=== PATIENT | male | born 1955 | race Two or more races ===

== ENCOUNTER 2017-09-10 12:21 | Inpatient (IN) | payer MEDICAID ==
[~2017-09-10] VITALS: Ht 165.1 cm; Wt 35.8 kg
[2017-09-10 12:29] VITALS: BP 122/78
[2017-09-10] MEDS ORDERED: Pantoprazole Inj IVP ONE (12:45)
[2017-09-10] MEDS ORDERED: NORCO 5-325 TA1 EACH ORAL (13:50)
[2017-09-10] MEDS ORDERED: HUMULIN R100 UNIT/1 SUBQ (13:50)
[2017-09-10] MEDS ORDERED: NEURONTIN600 MG ORAL (13:50)
[2017-09-10] MEDS ORDERED: PRO-STAT LIQUID30 ML ORAL (13:52)
[2017-09-10] MEDS ORDERED: ZOFRAN4 M3 ORAL (13:52)
[2017-09-10] MEDS ORDERED: ACETAMINOPHEN325 M1 ORAL (13:52)
--- NOTE | 2017-09-10 14:11 | Emergency Room Report ---
History of Present Illness General Chief Complaint: Gastrointestinal Bleed Source: Patient, Medical Record, EMS Present Illness HPI 62YOM BIBEMS with alleged coffee ground emesis vomiting at SNF Was given IVF, zofran en route Patient c.o pain since last night Patient is poor historian, not clear if he has had this before Per SNF pancreatic cancer, type 2 DM, GERD, jaundice, Allergies: Coded Allergies: No Known Allergies (Unverified , 09/10/17) Patient History Past Medical History: other - see HPI Past Surgical History: none Pertinent Family History: none Social History: Denies: smoking, alcohol use, drug use Immunizations: UTD Reviewed Nursing Documentation: PMH: Agreed, PSxH: Agreed Nursing Documentation-PMH Past Medical History: No History, Except For Hx Diabetes: Yes Hx Cancer: Yes - pancreas Hx Gastrointestinal Problems: Yes - GERD Review of Systems All Other Systems: negative except mentioned in HPI Physical Exam Vital Signs Date Time Temp Pulse Resp B/P (MAP) Pulse Ox O2 Delivery O2 Flow Rate FiO2 09/10/17 12:15 96.4 94 18 114/76 100 Room Air 96.4 Sp02 EP Interpretation: reviewed, normal General Appearance: normal inspection, well appearing, no apparent distress, alert, GCS 15, non-toxic, cachetic, thin Head: normocephalic, atraumatic Eyes: bilateral eye PERRL, bilateral eye EOMI ENT: normal ENT inspection, hearing grossly normal, normal pharynx, no angioedema, normal voice, TMs + canals normal, uvula midline, moist mucus membranes Neck: normal inspection, full range of motion, supple, thyroid normal, no meningismus, no bony tend Respiratory: normal inspection, lungs clear, normal breath sounds, no rhonchi, no respiratory distress, no retraction, no accessory muscle use, no wheezing, speaking full sentences Cardiovascular #1: regular rate, rhythm, no edema, no JVD, normal capillary refill Gastrointestinal: normal inspection, normal bowel sounds, non tender, soft, no mass, no peritonitis, non-distended, no guarding, no hernia, no pulsatile mass Genitourinary: no CVA tenderness Musculoskeletal: normal inspection, back normal, normal range of motion, no calf tenderness, pelvis stable, Migdalia's Sign negative Neurologic: normal inspection, alert, oriented x3, responsive, roof fixer III-XII nml as tested, motor strength/tone normal, cerebellar normal, normal gait, speech normal Psychiatric: normal inspection, judgement/insight normal, mood/affect normal, no suicidal/homicidal ideation, no delusions Skin: normal inspection, normal color, no rash, pallor Lymphatic: normal inspection, no adenopathy Medical Decision Making Diagnostic Impression: Primary Impression: Coffee ground emesis Additional Impression: Anemia Qualified Codes: D64.9 - Anemia, unspecified ER Course VS with tachycardia Pale, cachextic History of GERD Labs: Critically low Hb Given protonix, zofran here Got 2U PRBCs in ED No additional coffee ground emesis or hematesis in ED Endorsed to Dr Kinsey for Dr Ayala, 232pm EKG Diagnostic Results Rate: normal, tachycardiac Rhythm: NSR ST Segments: no acute changes ASA given to the pt in ED: No Rhythm Strip Diag. Results EP Interpretation: yes Rate: 108 Rhythm: NSR, no PVC's, no ectopy Last Vital Signs Date Time Temp Pulse Resp B/P (MAP) Pulse Ox O2 Delivery O2 Flow Rate FiO2 09/10/17 12:29 91 16 122/78 100 Room Air 09/10/17 12:15 96.4 96.4 Status: improved Disposition: ADMITTED INPATIENT Condition: Critical Referrals: ISABELLA AYALA (PCP) SAWYER GARCIA M.D. Sep 10, 2017 14:11
[2017-09-10] MEDS ORDERED: LR 1000ml 1,000 ML IV STA (14:14)
[2017-09-10 14:17] LABS: HEMATOCRIT 20.7 % (42.0-52.0); MEAN CORPUSCULAR VOLUME 98 FL (80-99); PLATELET COUNT 269 K/UL (150-450); RED BLOOD COUNT 2.11 M/UL (4.70-6.10); WHITE BLOOD COUNT 9.2 K/UL (4.8-10.8)
[2017-09-10 14:18] LABS: HEMOGLOBIN 6.6 G/DL (14.2-18.0); INR 1.2 (0.9-1.1)
[2017-09-10 14:30] VITALS: BP 110/78
[2017-09-10 14:44] LABS: ANION GAP 11 mmol/L (5-15); BLOOD UREA NITROGEN 35 mg/dL (7-18); CALCIUM 7.4 MG/DL (8.5-10.1); CARBON DIOXIDE 24 MMOL/L (21-32); CHLORIDE 103 MMOL/L (98-107); CREATININE 0.9 MG/DL (0.55-1.30); SODIUM 138 MMOL/L (136-145)
[2017-09-10 14:49] LABS: ALANINE AMINOTRANSFERASE 16 U/L (12-78); ALBUMIN/GLOBULIN RATIO 0.6 (1.0-2.7); ALKALINE PHOSPHATASE 69 U/L (46-116); ASPARTATE AMINO TRANSFERASE 15 U/L (15-37); BILIRUBIN,TOTAL 0.4 MG/DL (0.2-1.0)
[2017-09-10 16:30] VITALS: BP 101/66
[2017-09-10 19:50] VITALS: BP 123/84
[2017-09-10 20:05] VITALS: BP 120/83
[2017-09-10 21:57] VITALS: BP 126/73
[2017-09-10] MEDS ORDERED: D5NS 1,000 ML IV SCH (22:45)
[2017-09-10] MEDS ORDERED: Morphine Sulfate 2mg/ml Inj IVP PRN (22:45)
[2017-09-11] VITALS (10 sets, daily range): BP systolic 99–128; BP diastolic 64–76
[2017-09-11 00:04] LABS: HEMATOCRIT 28.6 % (42.0-52.0); MEAN CORPUSCULAR VOLUME 87 FL (80-99); PLATELET COUNT 204 K/UL (150-450); RED BLOOD COUNT 3.27 M/UL (4.70-6.10); RED CELL DISTRIBUTION WIDTH 19.2 % (11.6-14.8); WHITE BLOOD COUNT 10.1 K/UL (4.8-10.8)
[2017-09-11] MEDS: HYDROcodone/Acetamin 10/325 tab ORAL PRN ×3 (02:01→19:16)
[2017-09-11] MEDS: NovoLOG Insulin Flexpen SUBQ SCH ×4 (06:11→21:10)
[2017-09-11] MEDS ORDERED: Pantoprazole Inj IV SCH (09:00)
[2017-09-11 09:36] LABS: HEMATOCRIT 26.1 % (42.0-52.0); HEMOGLOBIN 8.7 G/DL (14.2-18.0); MEAN CORPUSCULAR VOLUME 88 FL (80-99); PLATELET COUNT 186 K/UL (150-450); RED BLOOD COUNT 2.96 M/UL (4.70-6.10); RED CELL DISTRIBUTION WIDTH 19.6 % (11.6-14.8); WHITE BLOOD COUNT 13.4 K/UL (4.8-10.8)
--- NOTE | 2017-09-11 09:39 | GI Initial Consult Note ---
History of Present Illness General Date patient seen: Sep 11, 2017 Time patient seen: 09:30 Reason for Hospitalization: Gastrointestinal Bleed Referring physician: FREEMAN LIVINGSTON Reason for Consultation: GI BLEED Present Illness HPI 62YOM BIBEMS with alleged coffee ground emesis vomiting at SNF Was given IVF, zofran en route Patient c.o pain since last night Patient is poor historian, not clear if he has had this before Per SNF pancreatic cancer, type 2 DM, GERD, jaundice GI consulted for GI bleed. Pt seen on floor, awake A&O NAD with no active s/sx of N/V/D. ROS limited, patient is a poor historian. Denies any pain at this time. Stated he did have episodes of vomiting and noted coffee grounds. Unsure if he ever had any endoscopic procedures done before. POLST reviewed, patient has decision maker. Patient presents today with anemia of acute blood loss requiring blood transfusion. Unknown history of endoscopy / colonoscopies. Home Meds Reported Medications Ondansetron* (ZOFRAN*) 4 Mg Tablet, 4 MG ORAL Q4HR Y for Nausea & Vomiting, TAB 09/10/17 Acetaminophen* (ACETAMINOPHEN 325MG TABLET*) 325 Mg Tablet, 650 MG ORAL Q4H Y for For Pain, TAB 09/10/17 Amino Acids/Protein Hydrolys (PRO-STAT LIQUID) 30 Ml Liquid.pkt, 30 ML ORAL DAILY, ML 09/10/17 Hydrocodone Bit/Acetaminophen 5-325* (NORCO 5-325*) 1 Each Tablet, 2 TAB ORAL Q4H Y for For Pain, TAB 0 Refills 09/10/17 Hydrocodone Bit/Acetaminophen 5-325* (NORCO 5-325*) 1 Each Tablet, 1 TAB ORAL Q4H Y for For Pain, TAB 0 Refills 09/10/17 Gabapentin* (NEURONTIN*) 600 Mg Tablet, 600 MG ORAL EVERY 12 HOURS, TAB 09/10/17 Insulin Regular, Human (HUMULIN R) 100 Unit/1 Ml Vial, 0 SUBQ, VIAL 09/10/17 Med list reviewed/reconciled: Yes Allergies: Coded Allergies: No Known Allergies (Unverified , 09/10/17) Patient History Limited by: medical condition History Provided By: Medical Record [facility] Narrative Past Medical History: other - see HPI Past Surgical History: none Pertinent Family History: none Social History: Denies: smoking, alcohol use, drug use Immunizations: UTD Reviewed Nursing Documentation: PMH: Agreed, PSxH: Agreed Nursing Documentation-PMH Past Medical History: No History, Except For Hx Diabetes: Yes Hx Cancer: Yes - pancreas Hx Gastrointestinal Problems: Yes - GERD Review of Systems All Other Systems: limited Physical Exam Vital Signs Date Time Temp Pulse Resp B/P (MAP) Pulse Ox O2 Delivery O2 Flow Rate FiO2 09/10/17 12:15 96.4 94 18 114/76 100 Room Air 96.4 Sp02 EP Interpretation: reviewed, normal Labs Laboratory Tests Test 09/10/17 14:00 09/10/17 23:35 09/11/17 09:10 White Blood Count 9.2 K/UL (4.8-10.8) 10.1 K/UL (4.8-10.8) Pending Red Blood Count 2.11 M/UL (4.70-6.10) L 3.27 M/UL (4.70-6.10) L Pending Hemoglobin 6.6 G/DL (14.2-18.0) *L 10.0 G/DL (14.2-18.0) #L Pending Hematocrit 20.7 % (42.0-52.0) L 28.6 % (42.0-52.0) #L Pending Mean Corpuscular Volume 98 FL (80-99) 87 FL (80-99) # Pending Mean Corpuscular Hemoglobin 31.1 PG (27.0-31.0) H 30.4 PG (27.0-31.0) Pending Mean Corpuscular Hemoglobin Concent 31.8 G/DL (32.0-36.0) L 34.8 G/DL (32.0-36.0) Pending Red Cell Distribution Width 17.0 % (11.6-14.8) H 19.2 % (11.6-14.8) H Pending Platelet Count 269 K/UL (150-450) 204 K/UL (150-450) Pending Mean Platelet Volume 5.4 FL (6.5-10.1) L 5.2 FL (6.5-10.1) L Pending Neutrophils (%) (Auto) % (45.0-75.0) % (45.0-75.0) Pending Lymphocytes (%) (Auto) % (20.0-45.0) % (20.0-45.0) Pending Monocytes (%) (Auto) % (1.0-10.0) % (1.0-10.0) Pending Eosinophils (%) (Auto) % (0.0-3.0) % (0.0-3.0) Pending Basophils (%) (Auto) % (0.0-2.0) % (0.0-2.0) Pending Differential Total Cells Counted 100 Neutrophils % (Manual) 87 % (45-75) H Lymphocytes % (Manual) 8 % (20-45) L Monocytes % (Manual) 5 % (1-10) Eosinophils % (Manual) 0 % (0-3) Basophils % (Manual) 0 % (0-2) Band Neutrophils 0 % (0-8) Platelet Estimate Adequate Platelet Morphology Normal Hypochromasia 2+ Anisocytosis 1+ Prothrombin Time 12.6 SEC (9.30-11.50) H Prothromb Time International Ratio 1.2 (0.9-1.1) H Sodium Level 138 MMOL/L (136-145) Pending Potassium Level 4.0 MMOL/L (3.5-5.1) Pending Chloride Level 103 MMOL/L (98-107) Pending Carbon Dioxide Level 24 MMOL/L (21-32) Pending Anion Gap 11 mmol/L (5-15) Blood Urea Nitrogen 35 mg/dL (7-18) H Pending Creatinine 0.9 MG/DL (0.55-1.30) Pending Estimat Glomerular Filtration Rate > 60 mL/min (>60) Pending Glucose Level 201 MG/DL (74-106) H Pending Calcium Level 7.4 MG/DL (8.5-10.1) L Pending Total Bilirubin 0.4 MG/DL (0.2-1.0) Aspartate Amino Transf (AST/SGOT) 15 U/L (15-37) Alanine Aminotransferase (ALT/SGPT) 16 U/L (12-78) Alkaline Phosphatase 69 U/L (46-116) Total Protein 5.6 G/DL (6.4-8.2) L Albumin 2.0 G/DL (3.4-5.0) L Globulin 3.6 g/dL Albumin/Globulin Ratio 0.6 (1.0-2.7) L Lipase 33 U/L (73-393) L General Appearance: no apparent distress, alert, thin Head: normocephalic EENT: PERRL/EOMI, normal ENT inspection Neck: supple Respiratory: normal breath sounds, no respiratory distress Cardiovascular: normal rate Gastrointestinal: normal inspection, non tender, soft, normal bowel sounds, non -distended Rectal: deferred Genitourinary: deferred Musculoskeletal: normal inspection, back normal Neurologic: alert, responsive Skin: normal inspection, normal color, no rash, warm/dry, palpation normal, well hydrated Lymphatic: normal inspection, no adenopathy Current Medications Current Medications Medications (Trade) Dose Ordered Sig/Nishant Route PRN Reason Start Time Stop Time Status Last Admin Dose Admin Acetaminophen (Tylenol) 650 mg Q4H PRN ORAL Mild Pain (Pain Scale 1-3) 09/10/17 22:45 10/10/17 22:44 Acetaminophen/ Hydrocodone Bitart ([place] 10/325) 1 tab Q4H PRN ORAL For Pain 09/10/17 22:45 09/17/17 22:44 09/11/17 02:01 Dextrose (Dextrose 50%) STAT PRN IV Hypoglycemia 09/10/17 22:45 10/10/17 22:44 Dextrose/ Electrolytes 1,000 ml @ 75 mls/hr [id number] IV 09/10/17 23:39 10/10/17 23:38 09/10/17 23:45 Gabapentin (Neurontin) 600 mg EVERY 12 HOURS ORAL 09/11/17 09:00 10/11/17 08:59 09/11/17 08:50 Heparin Sodium/ Sodium Chloride (Heparin 2000 units/Ns 1000ml premix) 2,000 unit ONCE ONCE INJ 09/11/17 08:30 09/11/17 08:31 UNV Insulin Aspart (NovoLOG) BEFORE MEALS AND HS SUBQ 09/11/17 06:30 10/11/17 06:29 09/11/17 06:11 Lidocaine HCl (Xylocaine 1% 30ml) 30 ml ONCE ONCE INJ 09/11/17 08:30 09/11/17 08:31 UNV Morphine Sulfate (Morphine Sulfate) 2 mg Q4HR PRN IVP Severe Breakthru Pain (>7) 09/10/17 22:45 09/17/17 22:44 Ondansetron HCl (Zofran) 4 mg Q6H PRN IVP Nausea & Vomiting 09/10/17 22:45 10/10/17 22:44 Pantoprazole (Protonix) 40 mg DAILY IV 09/11/17 09:00 10/11/17 08:59 09/11/17 08:50 GI: Plan Problems: (1) Coffee ground emesis (2) Anemia (3) Anemia due to blood loss, acute Plan EGD to be scheduled today pending consent. - maintain NPO + IVFs - PPI BID - prn transfusions additional orders to follow procedure Discussed with Dr. Caicedo. Thank you for this patient referral, we will follow. Clemencia Topete N.P. Sep 11, 2017 09:38
[2017-09-11 09:44] LABS: ANION GAP 5 mmol/L (5-15); BLOOD UREA NITROGEN 32 mg/dL (7-18); CALCIUM 7.5 MG/DL (8.5-10.1); CARBON DIOXIDE 25 MMOL/L (21-32); CHLORIDE 110 MMOL/L (98-107); CREATININE 0.8 MG/DL (0.55-1.30); SODIUM 140 MMOL/L (136-145)
[2017-09-11] MEDS ORDERED: Lidocaine 1% MPF 10mg/ml 5ml INJ ONE (10:00)
[2017-09-11] MEDS ORDERED: Heparin 2000 units/Ns 1000ml INJ ONE (10:00)
[2017-09-11] MEDS ORDERED: Morphine Sulfate 4mg/ml Inj IVP PRN (11:00)
--- NOTE | 2017-09-11 12:49 | Pre-Procedure Note/Attestation ---
Pre-Procedure Note/Attestation Complete Prior to Procedure Planned Procedure: not applicable Procedure Narrative: egd Indications for Procedure Pre-Operative Diagnosis: gib Attestation I attest that I discussed the nature of the procedure; its benefits; risks and complications; and alternatives (and the risks and benefits of such alternatives ), prior to the procedure, with the patient (or the patient's legal farm loan representative). I attest that, if there was a reasonable possibility of needing a blood transfusion, the patient (or the patient's legal farm loan representative) was given the [facility] standardized written summary, pursuant to the Simon Rosi Blood Safety Act ([place] Health and Safety Code # 1645, as amended). I attest that I re-evaluated the patient just prior to the surgery and that there has been no change in the patient's H&P, except as documented below: ADELINA SPARKS Sep 11, 2017 12:49
[2017-09-11] MEDS ORDERED: Propofol 200mg/20ml IV ONE (13:00)
[2017-09-11] MEDS ORDERED: Lidocaine 1% MPF 10mg/ml 5ml ONE (13:00)
[2017-09-11] MEDS ORDERED: NS 500ML IV ONE (13:15)
--- NOTE | 2017-09-11 13:22 | Anethesia Preoperative Eval ---
Anesthesia Pre-op PMH/ROS General Date of Evaluation: Sep 11, 2017 Time of Evaluation: 13:00 Anesthesiologist: avril ASA Score: ASA 3 Mallampati Score Class I : Soft palate, uvula, fauces, pillars visible Class II: Soft palate, uvula, fauces visible Class III: Soft palate, base of uvula visible Class IV: Only hard plate visible Mallampati Classification: Class II Surgeon: christina Diagnosis: gi bleed Surgical Procedure: egd Anesthesia History: none Social History: smoking - nonsmoker Family History: no anesthesia problems Allergies: Coded Allergies: No Known Allergies (Unverified , 09/10/17) Medications: see eMAR Past Medical History Gastrointestinal/Genitourinary: Reports: GERD, other - pancreatic cancer, gi bleed, jaundice Endocrine: Reports: DM Hematology/Immune: Reports: anemia Anesthesia Pre-op Phys. Exam Physician Exam Last Vital Signs Date Time Temp Pulse Resp B/P (MAP) Pulse Ox O2 Delivery O2 Flow Rate FiO2 09/11/17 12:40 98.5 09/11/17 12:03 80 18 110/74 98 Room Air Constitutional: NAD Neurologic: CN 2-12 intact Cardiovascular: RRR Respiratory: CTA Gastrointestinal: S/NT/ND Airway Exam Mallampati Score: Class II MO: limited Neck: short TMD: 2fb ROM: limited Teeth: missing Anesthesia Pre-op A/P Labs Hematology Test 09/10/17 14:00 09/10/17 23:35 09/11/17 09:10 White Blood Count 9.2 K/UL (4.8-10.8) 10.1 K/UL (4.8-10.8) 13.4 K/UL (4.8-10.8) H Red Blood Count 2.11 M/UL (4.70-6.10) L 3.27 M/UL (4.70-6.10) L 2.96 M/UL (4.70-6.10) L Hemoglobin 6.6 G/DL (14.2-18.0) *L 10.0 G/DL (14.2-18.0) #L 8.7 G/DL (14.2-18.0) L Hematocrit 20.7 % (42.0-52.0) L 28.6 % (42.0-52.0) #L 26.1 % (42.0-52.0) L Mean Corpuscular Volume 98 FL (80-99) 87 FL (80-99) # 88 FL (80-99) Mean Corpuscular Hemoglobin 31.1 PG (27.0-31.0) H 30.4 PG (27.0-31.0) 29.5 PG (27.0-31.0) Mean Corpuscular Hemoglobin Concent 31.8 G/DL (32.0-36.0) L 34.8 G/DL (32.0-36.0) 33.5 G/DL (32.0-36.0) Red Cell Distribution Width 17.0 % (11.6-14.8) H 19.2 % (11.6-14.8) H 19.6 % (11.6-14.8) H Platelet Count 269 K/UL (150-450) 204 K/UL (150-450) 186 K/UL (150-450) Mean Platelet Volume 5.4 FL (6.5-10.1) L 5.2 FL (6.5-10.1) L 5.4 FL (6.5-10.1) L Neutrophils (%) (Auto) % (45.0-75.0) % (45.0-75.0) % (45.0-75.0) Lymphocytes (%) (Auto) % (20.0-45.0) % (20.0-45.0) % (20.0-45.0) Monocytes (%) (Auto) % (1.0-10.0) % (1.0-10.0) % (1.0-10.0) Eosinophils (%) (Auto) % (0.0-3.0) % (0.0-3.0) % (0.0-3.0) Basophils (%) (Auto) % (0.0-2.0) % (0.0-2.0) % (0.0-2.0) Differential Total Cells Counted 100 100 Neutrophils % (Manual) 87 % (45-75) H 91 % (45-75) H Lymphocytes % (Manual) 8 % (20-45) L 7 % (20-45) L Monocytes % (Manual) 5 % (1-10) 2 % (1-10) Eosinophils % (Manual) 0 % (0-3) 0 % (0-3) Basophils % (Manual) 0 % (0-2) 0 % (0-2) Band Neutrophils 0 % (0-8) 0 % (0-8) Platelet Estimate Adequate Adequate Platelet Morphology Normal Normal Hypochromasia 2+ 1+ Anisocytosis 1+ 1+ Coagulation Test 09/10/17 14:00 Prothrombin Time 12.6 SEC (9.30-11.50) H Prothromb Time International Ratio 1.2 (0.9-1.1) H Chemistry Test 09/10/17 14:00 09/11/17 09:10 Sodium Level 138 MMOL/L (136-145) 140 MMOL/L (136-145) Potassium Level 4.0 MMOL/L (3.5-5.1) 4.0 MMOL/L (3.5-5.1) Chloride Level 103 MMOL/L (98-107) 110 MMOL/L (98-107) H Carbon Dioxide Level 24 MMOL/L (21-32) 25 MMOL/L (21-32) Anion Gap 11 mmol/L (5-15) 5 mmol/L (5-15) Blood Urea Nitrogen 35 mg/dL (7-18) H 32 mg/dL (7-18) H Creatinine 0.9 MG/DL (0.55-1.30) 0.8 MG/DL (0.55-1.30) Estimat Glomerular Filtration Rate > 60 mL/min (>60) > 60 mL/min (>60) Glucose Level 201 MG/DL (74-106) H 147 MG/DL (74-106) H Calcium Level 7.4 MG/DL (8.5-10.1) L 7.5 MG/DL (8.5-10.1) L Total Bilirubin 0.4 MG/DL (0.2-1.0) Aspartate Amino Transf (AST/SGOT) 15 U/L (15-37) Alanine Aminotransferase (ALT/SGPT) 16 U/L (12-78) Alkaline Phosphatase 69 U/L (46-116) Total Protein 5.6 G/DL (6.4-8.2) L Albumin 2.0 G/DL (3.4-5.0) L Globulin 3.6 g/dL Albumin/Globulin Ratio 0.6 (1.0-2.7) L Lipase 33 U/L (73-393) L MISAEL GROVE Sep 11, 2017 13:21
--- NOTE | 2017-09-11 13:24 | Endoscopy Procedure Note ---
Endoscopy Procedure Note General Indication for Procedure: gib Procedures Performed: EGD Operative Findings/Diagnosis: h/o gastric bypass Specimen: yes Pt Tolerated Procedure Well: Yes Estimated Blood Loss: none Anesthesia Anesthesiologist: henry Anesthesia: MAC Inserted Devices Implant(s) used?: No GI Core Measures 50 yrs or older w/o bx or poly: Not Applicable 10yrs. F/U not recommended: Not Applicable ADELINA SPARKS Sep 11, 2017 13:24
[2017-09-11] MEDS ORDERED: DiphenhydrAMINE 50mg/ml Inj IVP PRN (13:30)
[2017-09-11] MEDS ORDERED: Midazolam 2mg/2ml Inj IVP PRN (13:30)
[2017-09-11] MEDS ORDERED: Atropine Inj 1mg/10ml Syr IV PRN (13:30)
[2017-09-11] MEDS ORDERED: fentaNYL 100 mcg/2 mL IV PRN (13:30)
--- NOTE | 2017-09-11 13:50 | History and Physical ---
History of Present Illness General Reason for Hospitalization: Gastrointestinal Bleed Present Illness HPI Patient is a 62 yr old male with a Pmhx of GERD, HTN, pancreatic CA, and DM who presented to the ED with complaints of coffee ground emesis at [facility]. Poor historian, it's not clear if he has had this before. In ED he was found to have severe anemia and was transfused 2 units of PRBC. Allergies: Coded Allergies: No Known Allergies (Unverified , 09/10/17) Medication History Scheduled Amino Acids/Protein Hydrolys (Pro-Stat Liquid), 30 ML ORAL DAILY, (Reported) Gabapentin* (Neurontin*), 600 MG ORAL EVERY 12 HOURS, (Reported) Scheduled PRN Acetaminophen* (Acetaminophen 325MG Tablet*), 650 MG ORAL Q4H PRN for For Pain, (Reported) Hydrocodone Bit/Acetaminophen 5-325* (Shade 5-325*), 1 TAB ORAL Q4H PRN for For Pain, (Reported) Hydrocodone Bit/Acetaminophen 5-325* (Shade 5-325*), 2 TAB ORAL Q4H PRN for For Pain, (Reported) Ondansetron* (Zofran*), 4 MG ORAL Q4HR PRN for Nausea & Vomiting, (Reported) Miscellaneous Medications Insulin Regular, Human (Humulin R), 0 SUBQ, (Reported) Patient History Limited by: language barrier Healthcare decision maker FELIPA BENEDICT-GUARDIAN [phone] Resuscitation status Full Code Advanced Directive on File Yes Past Medical/Surgical History Past Medical/Surgical History: (1) GERD (gastroesophageal reflux disease) (2) Diabetes (3) Pancreatic cancer (4) Jaundice Social History Social History: (1) Non-smoker (2) No history of alcohol use (3) Illicit drug use (4) halfway resident Review of Systems All Other Systems: negative except mentioned in HPI Physical Exam General Appearance: no apparent distress Lines, tubes and drains: peripheral HEENT: atraumatic Neck: non-tender, supple Respiratory/Chest: no respiratory distress, no accessory muscle use Cardiovascular/Chest: normal rate, regular rhythm, no JVD Abdomen: distended Extremities: non-tender, normal inspection, no calf tenderness Neurologic: responsive, normal mood/affect Last 24 Hour Vital Signs Date Time Temp Pulse Resp B/P (MAP) Pulse Ox O2 Delivery O2 Flow Rate FiO2 09/11/17 12:40 98.5 09/11/17 12:03 98.5 80 18 110/74 98 Room Air 09/11/17 08:00 78 09/11/17 08:00 98.9 81 18 100/64 98 Room Air 09/11/17 04:00 91 09/11/17 04:00 97.2 74 19 99/66 97 Room Air 09/11/17 00:00 97.9 86 20 128/74 96 Room Air 09/11/17 00:00 105 09/10/17 21:57 97.5 100 18 126/73 99 Room Air 09/10/17 20:30 98 18 124/88 100 Room Air 09/10/17 20:05 97.8 98 16 120/83 100 Room Air 97.8 09/10/17 19:50 97.9 98 18 123/84 100 Room Air 97.9 09/10/17 17:00 97.8 92 15 97.8 09/10/17 16:45 97.6 94 18 97.6 09/10/17 16:30 98.2 95 19 101/66 98 Room Air 98.2 09/10/17 16:30 98.2 98 18 98.2 09/10/17 16:25 97.4 100 18 97.4 09/10/17 16:20 99.0 99 18 99.0 09/10/17 16:15 97.7 90 18 97.7 09/10/17 14:30 108 16 110/78 99 Room Air Intake and Output 09/10/17 09/11/17 19:00 07:00 Intake Total 2250 ml 525 ml Balance 2250 ml 525 ml Intake IV Total 2000 ml 525 ml Blood Product 250 ml # Voids 2 # Bowel Movements 5 Laboratory Tests Test 09/10/17 14:00 09/10/17 23:35 09/11/17 09:10 White Blood Count 9.2 K/UL (4.8-10.8) 10.1 K/UL (4.8-10.8) 13.4 K/UL (4.8-10.8) H Red Blood Count 2.11 M/UL (4.70-6.10) L 3.27 M/UL (4.70-6.10) L 2.96 M/UL (4.70-6.10) L Hemoglobin 6.6 G/DL (14.2-18.0) *L 10.0 G/DL (14.2-18.0) #L 8.7 G/DL (14.2-18.0) L Hematocrit 20.7 % (42.0-52.0) L 28.6 % (42.0-52.0) #L 26.1 % (42.0-52.0) L Mean Corpuscular Volume 98 FL (80-99) 87 FL (80-99) # 88 FL (80-99) Mean Corpuscular Hemoglobin 31.1 PG (27.0-31.0) H 30.4 PG (27.0-31.0) 29.5 PG (27.0-31.0) Mean Corpuscular Hemoglobin Concent 31.8 G/DL (32.0-36.0) L 34.8 G/DL (32.0-36.0) 33.5 G/DL (32.0-36.0) Red Cell Distribution Width 17.0 % (11.6-14.8) H 19.2 % (11.6-14.8) H 19.6 % (11.6-14.8) H Platelet Count 269 K/UL (150-450) 204 K/UL (150-450) 186 K/UL (150-450) Mean Platelet Volume 5.4 FL (6.5-10.1) L 5.2 FL (6.5-10.1) L 5.4 FL (6.5-10.1) L Neutrophils (%) (Auto) % (45.0-75.0) % (45.0-75.0) % (45.0-75.0) Lymphocytes (%) (Auto) % (20.0-45.0) % (20.0-45.0) % (20.0-45.0) Monocytes (%) (Auto) % (1.0-10.0) % (1.0-10.0) % (1.0-10.0) Eosinophils (%) (Auto) % (0.0-3.0) % (0.0-3.0) % (0.0-3.0) Basophils (%) (Auto) % (0.0-2.0) % (0.0-2.0) % (0.0-2.0) Differential Total Cells Counted 100 100 Neutrophils % (Manual) 87 % (45-75) H 91 % (45-75) H Lymphocytes % (Manual) 8 % (20-45) L 7 % (20-45) L Monocytes % (Manual) 5 % (1-10) 2 % (1-10) Eosinophils % (Manual) 0 % (0-3) 0 % (0-3) Basophils % (Manual) 0 % (0-2) 0 % (0-2) Band Neutrophils 0 % (0-8) 0 % (0-8) Platelet Estimate Adequate Adequate Platelet Morphology Normal Normal Hypochromasia 2+ 1+ Anisocytosis 1+ 1+ Prothrombin Time 12.6 SEC (9.30-11.50) H Prothromb Time International Ratio 1.2 (0.9-1.1) H Sodium Level 138 MMOL/L (136-145) 140 MMOL/L (136-145) Potassium Level 4.0 MMOL/L (3.5-5.1) 4.0 MMOL/L (3.5-5.1) Chloride Level 103 MMOL/L (98-107) 110 MMOL/L (98-107) H Carbon Dioxide Level 24 MMOL/L (21-32) 25 MMOL/L (21-32) Anion Gap 11 mmol/L (5-15) 5 mmol/L (5-15) Blood Urea Nitrogen 35 mg/dL (7-18) H 32 mg/dL (7-18) H Creatinine 0.9 MG/DL (0.55-1.30) 0.8 MG/DL (0.55-1.30) Estimat Glomerular Filtration Rate > 60 mL/min (>60) > 60 mL/min (>60) Glucose Level 201 MG/DL (74-106) H 147 MG/DL (74-106) H Calcium Level 7.4 MG/DL (8.5-10.1) L 7.5 MG/DL (8.5-10.1) L Total Bilirubin 0.4 MG/DL (0.2-1.0) Aspartate Amino Transf (AST/SGOT) 15 U/L (15-37) Alanine Aminotransferase (ALT/SGPT) 16 U/L (12-78) Alkaline Phosphatase 69 U/L (46-116) Total Protein 5.6 G/DL (6.4-8.2) L Albumin 2.0 G/DL (3.4-5.0) L Globulin 3.6 g/dL Albumin/Globulin Ratio 0.6 (1.0-2.7) L Lipase 33 U/L (73-393) L Height (Feet): 5 Height (Inches): 5.00 Weight (Pounds): 79 Medications Current Medications Medications (Trade) Dose Ordered Sig/Nishant Route PRN Reason Start Time Stop Time Status Last Admin Dose Admin Acetaminophen (Tylenol) 650 mg Q4H PRN ORAL Mild Pain (Pain Scale 1-3) 09/10/17 22:45 10/10/17 22:44 Acetaminophen/ Hydrocodone Bitart (Shade 10/325) 1 tab Q4H PRN ORAL For Pain 09/10/17 22:45 09/17/17 22:44 09/11/17 11:41 Al Hydroxide/Mg Hydroxide (Mylanta) 15 ml Q1H PRN ORAL gi upset 09/11/17 13:30 UNV Atropine Sulfate (Atropine) 0.5 mg Q5M PRN IV bpm less than 45 09/11/17 13:30 UNV Dextrose (Dextrose 50%) STAT PRN IV Hypoglycemia 09/10/17 22:45 10/10/17 22:44 Dextrose/ Electrolytes 1,000 ml @ 75 mls/hr [id number] IV 09/10/17 23:39 10/10/17 23:38 09/10/17 23:45 Diphenhydramine HCl (Benadryl) 25 mg Q15M PRN IVP Itching 09/11/17 13:30 UNV Fentanyl Citrate (Sublimaze 100 mcg/2 mL) 25 mcg Q10M PRN IV Moderate Pain (Pain Scale 4-6) 09/11/17 13:30 UNV Gabapentin (Neurontin) 600 mg EVERY 12 HOURS ORAL 09/11/17 09:00 10/11/17 08:59 09/11/17 08:50 Hydralazine HCl (Apresoline) 5 mg Q30M PRN IV SBP>160 OR___/DBP>90 OR___ 09/11/17 13:30 UNV Insulin Aspart (NovoLOG) BEFORE MEALS AND HS SUBQ 09/11/17 06:30 10/11/17 06:29 09/11/17 06:11 Midazolam HCl (Versed 2mg/2ml vial) 1 mg Q15M PRN IVP For Anxiety 09/11/17 13:30 UNV Morphine Sulfate (Morphine Sulfate) 2 mg Q4H PRN IVP Severe Breakthru Pain (>7) 09/11/17 11:00 09/17/17 22:44 Ondansetron HCl (Zofran) 4 mg Q1H PRN IVP Nausea & Vomiting 09/11/17 13:30 UNV Ondansetron HCl (Zofran) 4 mg Q6H PRN IVP Nausea & Vomiting 09/10/17 22:45 10/10/17 22:44 Pantoprazole (Protonix) 40 mg EVERY 12 HOURS IVP 09/11/17 21:00 10/11/17 20:59 Sodium Chloride 1,000 ml @ 10 mls/hr Q24H IVLG 09/11/17 13:22 09/11/17 15:21 UNV Assessment/Plan Problem List: (1) Anemia ICD Codes: D64.9 - Anemia, unspecified SNOMED: 827265153 Qualifiers: Qualified Codes: D64.9 - Anemia, unspecified (2) Coffee ground emesis ICD Codes: K92.0 - Hematemesis SNOMED: 635503019, 75336698 (3) Diabetes ICD Codes: E11.9 - Type 2 diabetes mellitus without complications SNOMED: 93535559 (4) Pancreatic cancer ICD Codes: C25.9 - Malignant neoplasm of pancreas, unspecified SNOMED: 554754924 (5) GERD (gastroesophageal reflux disease) ICD Codes: K21.9 - Gastro-esophageal reflux disease without esophagitis SNOMED: 874955218 Assessment/Plan Pt is scheduled for EGD/colonoscopy, will f/u post procedure Monitor H&H, transfuse PRN Monitor lytes, correct prn ID consult Hematology/oncology consult - Hx of pancreatic cancer Continue PPI Pain management prn AM labs EgstephanieuTika N.P. Sep 11, 2017 13:50
--- NOTE | 2017-09-11 14:14 | Infectious Diseases Prog Note ---
Assessment/Plan Problems: (1) Leukocytosis Assessment & Plan: rule out sepsis, will order blood culture and start ceftriaxon empiric coverage (2) Coffee ground emesis Assessment & Plan: rule out UGI BLD , continue to monitor H/H, transfuse blood as needed , GI consulted (3) Diabetes Assessment & Plan: recommend tight glycemic control to keep blood glucose between 100-140 (4) GERD (gastroesophageal reflux disease) Assessment & Plan: continue PPI Subjective Allergies: Coded Allergies: No Known Allergies (Unverified , 09/10/17) Objective Vital Signs Last 24 Hour Vital Signs Date Time Temp Pulse Resp B/P (MAP) Pulse Ox O2 Delivery O2 Flow Rate FiO2 09/11/17 13:55 98.5 64 14 104/72 100 Nasal Cannula 3.0 09/11/17 13:44 66 14 104/70 100 Nasal Cannula 3.0 09/11/17 13:39 66 12 105/70 100 Nasal Cannula 3.0 09/11/17 13:34 98.3 67 14 106/69 100 Nasal Cannula 3.0 09/11/17 12:40 98.5 09/11/17 12:03 98.5 80 18 110/74 98 Room Air 09/11/17 08:00 78 09/11/17 08:00 98.9 81 18 100/64 98 Room Air 09/11/17 04:00 91 09/11/17 04:00 97.2 74 19 99/66 97 Room Air 09/11/17 00:00 97.9 86 20 128/74 96 Room Air 09/11/17 00:00 105 09/10/17 21:57 97.5 100 18 126/73 99 Room Air 09/10/17 20:30 98 18 124/88 100 Room Air 09/10/17 20:05 97.8 98 16 120/83 100 Room Air 97.8 09/10/17 19:50 97.9 98 18 123/84 100 Room Air 97.9 09/10/17 17:00 97.8 92 15 97.8 09/10/17 16:45 97.6 94 18 97.6 09/10/17 16:30 98.2 95 19 101/66 98 Room Air 98.2 09/10/17 16:30 98.2 98 18 98.2 09/10/17 16:25 97.4 100 18 97.4 09/10/17 16:20 99.0 99 18 99.0 09/10/17 16:15 97.7 90 18 97.7 09/10/17 14:30 108 16 110/78 99 Room Air Height (Feet): 5 Height (Inches): 5.00 Weight (Pounds): 79 Laboratory Tests Test 09/10/17 23:35 09/11/17 09:10 White Blood Count 10.1 K/UL (4.8-10.8) 13.4 K/UL (4.8-10.8) H Red Blood Count 3.27 M/UL (4.70-6.10) L 2.96 M/UL (4.70-6.10) L Hemoglobin 10.0 G/DL (14.2-18.0) #L 8.7 G/DL (14.2-18.0) L Hematocrit 28.6 % (42.0-52.0) #L 26.1 % (42.0-52.0) L Mean Corpuscular Volume 87 FL (80-99) # 88 FL (80-99) Mean Corpuscular Hemoglobin 30.4 PG (27.0-31.0) 29.5 PG (27.0-31.0) Mean Corpuscular Hemoglobin Concent 34.8 G/DL (32.0-36.0) 33.5 G/DL (32.0-36.0) Red Cell Distribution Width 19.2 % (11.6-14.8) H 19.6 % (11.6-14.8) H Platelet Count 204 K/UL (150-450) 186 K/UL (150-450) Mean Platelet Volume 5.2 FL (6.5-10.1) L 5.4 FL (6.5-10.1) L Neutrophils (%) (Auto) % (45.0-75.0) % (45.0-75.0) Lymphocytes (%) (Auto) % (20.0-45.0) % (20.0-45.0) Monocytes (%) (Auto) % (1.0-10.0) % (1.0-10.0) Eosinophils (%) (Auto) % (0.0-3.0) % (0.0-3.0) Basophils (%) (Auto) % (0.0-2.0) % (0.0-2.0) Differential Total Cells Counted 100 Neutrophils % (Manual) 91 % (45-75) H Lymphocytes % (Manual) 7 % (20-45) L Monocytes % (Manual) 2 % (1-10) Eosinophils % (Manual) 0 % (0-3) Basophils % (Manual) 0 % (0-2) Band Neutrophils 0 % (0-8) Platelet Estimate Adequate Platelet Morphology Normal Hypochromasia 1+ Anisocytosis 1+ Sodium Level 140 MMOL/L (136-145) Potassium Level 4.0 MMOL/L (3.5-5.1) Chloride Level 110 MMOL/L (98-107) H Carbon Dioxide Level 25 MMOL/L (21-32) Anion Gap 5 mmol/L (5-15) Blood Urea Nitrogen 32 mg/dL (7-18) H Creatinine 0.8 MG/DL (0.55-1.30) Estimat Glomerular Filtration Rate > 60 mL/min (>60) Glucose Level 147 MG/DL (74-106) H Calcium Level 7.5 MG/DL (8.5-10.1) L Current Medications Medications (Trade) Dose Ordered Sig/Nishant Route PRN Reason Start Time Stop Time Status Last Admin Dose Admin Acetaminophen (Tylenol) 650 mg Q4H PRN ORAL Mild Pain (Pain Scale 1-3) 09/10/17 22:45 10/10/17 22:44 Acetaminophen/ Hydrocodone Bitart (Veneta 10/325) 1 tab Q4H PRN ORAL For Pain 09/10/17 22:45 09/17/17 22:44 09/11/17 11:41 Al Hydroxide/Mg Hydroxide (Mylanta) 15 ml Q1H PRN ORAL gi upset 09/11/17 13:30 09/11/17 19:30 Atropine Sulfate (Atropine) 0.5 mg Q5M PRN IV bpm less than 45 09/11/17 13:30 09/11/17 19:30 Dextrose (Dextrose 50%) STAT PRN IV Hypoglycemia 09/10/17 22:45 10/10/17 22:44 Dextrose/ Electrolytes 1,000 ml @ 75 mls/hr [id number] IV 09/10/17 23:39 10/10/17 23:38 09/11/17 14:07 Diphenhydramine HCl (Benadryl) 25 mg Q15M PRN IVP Itching 09/11/17 13:30 09/11/17 19:30 Fentanyl Citrate (Sublimaze 100 mcg/2 mL) 25 mcg Q10M PRN IV Moderate Pain (Pain Scale 4-6) 09/11/17 13:30 09/11/17 19:30 Gabapentin (Neurontin) 600 mg EVERY 12 HOURS ORAL 09/11/17 09:00 10/11/17 08:59 09/11/17 08:50 Hydralazine HCl (Apresoline) 5 mg Q30M PRN IV SBP>160 /DBP>90 09/11/17 13:30 09/11/17 19:30 Insulin Aspart (NovoLOG) BEFORE MEALS AND HS SUBQ 09/11/17 06:30 10/11/17 06:29 09/11/17 06:11 Midazolam HCl (Versed 2mg/2ml vial) 1 mg Q15M PRN IVP For Anxiety 09/11/17 13:30 09/11/17 19:30 Morphine Sulfate (Morphine Sulfate) 2 mg Q4H PRN IVP Severe Breakthru Pain (>7) 09/11/17 11:00 09/17/17 22:44 Ondansetron HCl (Zofran) 4 mg Q1H PRN IVP Nausea & Vomiting 09/11/17 13:30 09/11/17 19:30 Ondansetron HCl (Zofran) 4 mg Q6H PRN IVP Nausea & Vomiting 09/10/17 22:45 10/10/17 22:44 Pantoprazole (Protonix) 40 mg EVERY 12 HOURS IVP 09/11/17 21:00 10/11/17 20:59 Sodium Chloride 1,000 ml @ 10 mls/hr Q24H IVLG 09/11/17 13:22 09/11/17 15:21 Jv Eli M.D. Sep 11, 2017 14:14
--- NOTE | 2017-09-11 14:17 | Cardiology Report ---
APPROVED REPORT EKG Measurement Heart [id number] Sinus tachycardia with 1st degree AV block Marked ST abnormality, possible inferior subendocardial injury Prolonged QT Abnormal ECG
[2017-09-11] MEDS: cefTRIAXone 2 GM in NS 55 ML IVPB SCH (15:18)
[2017-09-11 16:58] LABS: HEMATOCRIT 22.7 % (42.0-52.0); HEMOGLOBIN 7.8 G/DL (14.2-18.0); MEAN CORPUSCULAR VOLUME 87 FL (80-99); PLATELET COUNT 173 K/UL (150-450); RED CELL DISTRIBUTION WIDTH 19.3 % (11.6-14.8); WHITE BLOOD COUNT 10.2 K/UL (4.8-10.8)
[2017-09-11 16:59] LABS: BASOPHILS % (AUTO) 0.3 % (0.0-2.0); MONOCYTES % (AUTO) 5.8 % (1.0-10.0)
[2017-09-11 18:36] LABS: FERRITIN 134 NG/ML (8-388); LACTATE DEHYDROGENASE 412 U/L (81-234)
[2017-09-11 18:41] LABS: INR 1.1 (0.9-1.1)
[2017-09-11 18:49] LABS: % IRON SATURATION 39 % (15-50); IRON 47 ug/dL (50-175); TOTAL IRON BINDING CAPACITY 120 ug/dL (250-450)
--- NOTE | 2017-09-11 20:30 | Consultation ---
DATE OF CONSULTATION: 09/11/2017 INFECTIOUS DISEASE CONSULTATION CONSULTING PHYSICIAN: Jv Eli M.D. REQUESTING PHYSICIAN: Delonte Quintero M.D. REASON FOR CONSULTATION: Leukocytosis, rule out sepsis and infectious etiology. HISTORY OF PRESENT ILLNESS: The patient is a 62-year-old male with past medical history of diabetes, pancreatic cancer, and GERD, who was brought in to [facility] via paramedics with coffee-ground emesis [facility]. The patient was complaining of abdominal pain the night prior, unclear how many times he vomited, but there was no fever or chills. No cough or phlegm and no diarrhea at the [facility]. The patient had workup in the emergency room including complete blood count, which showed evidence of leukocytosis, unclear etiology, so infectious disease consultation was requested for further evaluation and management. As of note, the patient is poor historian and cannot provide good history. History was mainly obtained from the medical record. REVIEW OF SYSTEMS: Unable to obtain. The patient is poor historian. PAST MEDICAL HISTORY: Significant for pancreatic cancer, diabetes type 2, GERD, and jaundice. PAST SURGICAL HISTORY: Unknown. FAMILY HISTORY: Unable to obtain. SOCIAL HISTORY: He is a prison facility resident. No recent drugs, tobacco, or alcohol. ALLERGIES: He has no known drug allergy. MEDICATIONS: The patient is on pantoprazole, fentanyl, midazolam, Zofran, Mylanta, Apresoline, Benadryl, atropine, morphine sulfate. PHYSICAL EXAMINATION: VITAL SIGNS: Temperature 98.5, pulse 64, respiration 14, blood pressure 104/72, saturation 100% on 3 L nasal cannula. GENERAL: An elderly male, pale, lying in bed, awake, alert, responsive, Mohawk speaker, not in distress. HEENT: He has ecchymosis on his eye. Dry oral mucosa. Poor dental hygiene. No thrush or ulceration. NECK: Supple. No lymphadenopathy. CARDIOVASCULAR: Regular rate and rhythm. No murmur or gallop. LUNGS: Clear bilaterally. Diminished breathing sounds at the bases. ABDOMEN: Soft, nontender, nondistended. Positive bowel sounds. No hepatosplenomegaly. No ascites. EXTREMITIES: No edema. No cyanosis. No rash. LABORATORY DATA: Showed white count of 13.4, hemoglobin of 8.7, platelet count of 186,000. BUN of 32, creatinine of 0.8. Imaging, none done. ASSESSMENT AND RECOMMENDATION: 1. Leukocytosis, rule out sepsis and infectious etiology. We will order blood culture and chest x-ray. We will start ceftriaxone empiric coverage since he has gastrointestinal bleeding with varices possible. 2. Coffee-ground emesis, rule out upper gastrointestinal bleeding. Continue to monitor hemoglobin and hematocrit. Transfuse blood as needed. Gastroenterology is consulted. 3. Diabetes. Recommend tight glycemic control to keep blood glucose between 100-140. 4. Gastroesophageal reflux disease. Continue proton-pump inhibitor. Thank you for the consult. Jv Eli M.D. DR: Shiela JOB#: [id number] CC:
--- NOTE | 2017-09-11 21:00 | Procedure Note ---
DATE OF PROCEDURE: 09/11/2017 SURGEON: Jose Caicedo M.D. PROCEDURE: Upper endoscopy with biopsy. ANESTHESIA: Aeljandra Buenrostro M.D. INSTRUMENT: Olympus adult flexible endoscope. INDICATION: Upper GI bleeding. REASON FOR PROCEDURE: The procedure, risks, benefits, and possible consequences, including hemorrhage, aspiration, perforation and infection, and alternative treatments, were explained to the patient/legal guardian by Dr. Jose Caicedo and the patient/legal guardian understood and accepted these risks. DESCRIPTION OF PROCEDURE: After informed consent was obtained and the patient was adequately sedated, Olympus upper endoscope was advanced from mouth into the esophagus. Then from the esophagus, the scope was advanced in the gastric pouch. The patient has evidence of prior history of gastric bypass surgery or gastrojejunostomy anastomosis for whatever reason. There is a lot of bile reflux into the gastric pouch without any obvious active bleeding at this time. No melena. No dark blood. There was a lot of bubbles and bile in the gastric pouch. We washed and cleaned up. There was evidence of some gastritis of the pouch, which we biopsied. There is no anastomotic ulceration. At this time, the scope was retrieved and procedure was terminated. SUMMARY FINDINGS: 1. History of gastrojejunostomy for unknown reason at this time. 2. Bile reflux. 3. Gastritis, status post biopsy. RECOMMENDATIONS: There is no evidence of any active upper GI bleeding at this time. We will going to send the stool for OB. Repeat CBC. Consider doing colonoscopy on Thursday. I want to thank, Dr. Delonte Quintero, for this kind referral. Jose Caicedo M.D. DR: ELI JOB#: [id number] CC: Delonte Quintero M.D.; Fax#: [phone]
[2017-09-11] MEDS: Pantoprazole Inj IVP SCH (21:06)
[2017-09-12] VITALS: BP 115/74
[2017-09-12] MEDS: HYDROcodone/Acetamin 10/325 tab ORAL PRN ×4 (03:19→20:08)
[2017-09-12 04:00] VITALS: BP 137/92
[2017-09-12] MEDS: NovoLOG Insulin Flexpen SUBQ SCH ×4 (06:17→20:10)
[2017-09-12 07:31] LABS: BASOPHILS % (AUTO) 0.4 % (0.0-2.0); HEMATOCRIT 26.6 % (42.0-52.0); MEAN CORPUSCULAR VOLUME 88 FL (80-99); MONOCYTES % (AUTO) 6.6 % (1.0-10.0); PLATELET COUNT 168 K/UL (150-450); RED BLOOD COUNT 3.03 M/UL (4.70-6.10); RED CELL DISTRIBUTION WIDTH 19.2 % (11.6-14.8); WHITE BLOOD COUNT 8.6 K/UL (4.8-10.8)
[2017-09-12 07:58] LABS: ANION GAP 8 mmol/L (5-15); BLOOD UREA NITROGEN 13 mg/dL (7-18); CALCIUM 7.7 MG/DL (8.5-10.1); CARBON DIOXIDE 23 MMOL/L (21-32); CHLORIDE 107 MMOL/L (98-107); CREATININE 0.6 MG/DL (0.55-1.30); POTASSIUM 3.2 MMOL/L (3.5-5.1); SODIUM 138 MMOL/L (136-145)
[2017-09-12 08:04] VITALS: BP 123/79
[2017-09-12] MEDS: Pantoprazole Inj IVP SCH ×2 (08:24→20:07)
--- NOTE | 2017-09-12 11:14 | General Progress Note ---
Assessment/Plan Problem List: (1) Diabetes ICD Codes: E11.9 - Type 2 diabetes mellitus without complications SNOMED: 24437143 (2) Anemia ICD Codes: D64.9 - Anemia, unspecified SNOMED: 456782697 Qualifiers: Qualified Codes: D64.9 - Anemia, unspecified (3) abdominal malegnancy s/p surgery Assessment/Plan ordered CT fu H&H fu stool ob fu CEA may need colonoscopy on Thursday Subjective ROS Limited/Unobtainable: Yes Allergies: Coded Allergies: No Known Allergies (Unverified , 09/10/17) Subjective no abd pain Objective Last 24 Hour Vital Signs Date Time Temp Pulse Resp B/P (MAP) Pulse Ox O2 Delivery O2 Flow Rate FiO2 09/12/17 10:26 97.7 09/12/17 08:04 97.7 65 18 123/79 96 Room Air 09/12/17 08:00 65 09/12/17 04:00 63 09/12/17 04:00 97.5 68 18 137/92 96 Room Air 09/12/17 00:00 97.0 16 115/74 97 Room Air 09/12/17 00:00 68 09/12/17 00:00 62 09/11/17 20:00 97.7 70 16 105/70 95 09/11/17 20:00 Room Air 09/11/17 20:00 74 09/11/17 19:16 98.4 09/11/17 16:00 74 09/11/17 16:00 98.4 73 18 100/67 100 Room Air 98.0 09/11/17 13:55 98.5 64 14 104/72 100 Nasal Cannula 3.0 09/11/17 13:44 66 14 104/70 100 Nasal Cannula 3.0 09/11/17 13:39 66 12 105/70 100 Nasal Cannula 3.0 09/11/17 13:34 98.3 67 14 106/69 100 Nasal Cannula 3.0 09/11/17 12:40 98.5 09/11/17 12:03 98.5 80 18 110/74 98 Room Air 09/11/17 12:00 76 Intake and Output 09/11/17 09/12/17 19:00 07:00 Intake Total 760 ml 1149 ml Output Total 800 ml Balance 760 ml 349 ml Intake Oral 200 ml IV Total 560 ml 899 ml Blood Product 250 ml Output Urine Total 800 ml # Voids 1 # Bowel Movements 3 Laboratory Tests 09/11/17 15:45: White Blood Count 10.2, Red Blood Count 2.60L, Hemoglobin 7.8L, Hematocrit 22.7L , Mean Corpuscular Volume 87, Mean Corpuscular Hemoglobin 29.9, Mean Corpuscular Hemoglobin Concent 34.3, Red Cell Distribution Width 19.3H, Platelet Count 173, Mean Platelet Volume 5.5L, Neutrophils (%) (Auto) 86.0H, Lymphocytes (%) (Auto) 8.0L, Monocytes (%) (Auto) 5.8, Eosinophils (%) (Auto) 0.0, Basophils (%) (Auto) 0.3, Reticulocyte Count 0.8, Iron Level 47L, Total Iron Binding Capacity 120L, Percent Iron Saturation 39, Unsaturated Iron Binding 73L, Ferritin 134, Lactate Dehydrogenase 412H, Vitamin B12 Level 678, Folate 8.0L 09/11/17 18:10: Prothrombin Time 11.6H, Prothromb Time International Ratio 1.1, Fibrinogen 283 09/12/17 06:20: White Blood Count 8.6, Red Blood Count 3.03L, Hemoglobin 9.0L, Hematocrit 26.6L , Mean Corpuscular Volume 88, Mean Corpuscular Hemoglobin 29.7, Mean Corpuscular Hemoglobin Concent 33.9, Red Cell Distribution Width 19.2H, Platelet Count 168, Mean Platelet Volume 5.6L, Neutrophils (%) (Auto) 83.0H, Lymphocytes (%) (Auto) 10.0L, Monocytes (%) (Auto) 6.6, Eosinophils (%) (Auto) 0.0, Basophils (%) (Auto) 0.4, Sodium Level 138, Potassium Level 3.2L, Chloride Level 107, Carbon Dioxide Level 23, Anion Gap 8, Blood Urea Nitrogen 13, Creatinine 0.6, Estimat Glomerular Filtration Rate > 60, Glucose Level 168H, Calcium Level 7.7L 09/12/17 10:00: Stool Occult Blood [Pending] Height (Feet): 5 Height (Inches): 5.00 Weight (Pounds): 79 General Appearance: alert EENT: normal ENT inspection Neck: supple Cardiovascular: normal rate Respiratory/Chest: lungs clear Abdomen: normal bowel sounds, non tender, soft Extremities: non-tender ADELINA SPARKS Sep 12, 2017 11:14
--- NOTE | 2017-09-12 11:42 | Nephrology Progress Note ---
Assessment/Plan Problem List: (1) C. difficile colitis Assessment: on vanco PO (2) Anemia (3) Coffee ground emesis (4) Diabetes (5) Pancreatic cancer (6) GERD (gastroesophageal reflux disease) (7) Leukocytosis (8) abdominal malegnancy s/p surgery Plan GI following. F/u CT. Possible colonoscopy. ID following. Abx per ID. D/c telemetry. Patient hemodynamically stable. D/w Dr. Quintero. Subjective Subjective comfortable. no diarrhea. Objective Objective Last 24 Hour Vital Signs Date Time Temp Pulse Resp B/P (MAP) Pulse Ox O2 Delivery O2 Flow Rate FiO2 09/12/17 11:25 97.7 09/12/17 10:26 97.7 09/12/17 08:04 97.7 65 18 123/79 96 Room Air 09/12/17 08:00 65 09/12/17 04:00 63 09/12/17 04:00 97.5 68 18 137/92 96 Room Air 09/12/17 00:00 97.0 16 115/74 97 Room Air 09/12/17 00:00 68 09/12/17 00:00 62 09/11/17 20:00 97.7 70 16 105/70 95 09/11/17 20:00 Room Air 09/11/17 20:00 74 09/11/17 19:16 98.4 09/11/17 16:00 74 09/11/17 16:00 98.4 73 18 100/67 100 Room Air 98.0 09/11/17 13:55 98.5 64 14 104/72 100 Nasal Cannula 3.0 09/11/17 13:44 66 14 104/70 100 Nasal Cannula 3.0 09/11/17 13:39 66 12 105/70 100 Nasal Cannula 3.0 09/11/17 13:34 98.3 67 14 106/69 100 Nasal Cannula 3.0 09/11/17 12:03 98.5 80 18 110/74 98 Room Air 09/11/17 12:00 76 Intake and Output 09/11/17 09/12/17 19:00 07:00 Intake Total 760 ml 1149 ml Output Total 800 ml Balance 760 ml 349 ml Intake Oral 200 ml IV Total 560 ml 899 ml Blood Product 250 ml Output Urine Total 800 ml # Voids 1 # Bowel Movements 3 Laboratory Tests 09/11/17 15:45: White Blood Count 10.2, Red Blood Count 2.60L, Hemoglobin 7.8L, Hematocrit 22.7L , Mean Corpuscular Volume 87, Mean Corpuscular Hemoglobin 29.9, Mean Corpuscular Hemoglobin Concent 34.3, Red Cell Distribution Width 19.3H, Platelet Count 173, Mean Platelet Volume 5.5L, Neutrophils (%) (Auto) 86.0H, Lymphocytes (%) (Auto) 8.0L, Monocytes (%) (Auto) 5.8, Eosinophils (%) (Auto) 0.0, Basophils (%) (Auto) 0.3, Reticulocyte Count 0.8, Iron Level 47L, Total Iron Binding Capacity 120L, Percent Iron Saturation 39, Unsaturated Iron Binding 73L, Ferritin 134, Lactate Dehydrogenase 412H, Vitamin B12 Level 678, Folate 8.0L 09/11/17 18:10: Prothrombin Time 11.6H, Prothromb Time International Ratio 1.1, Fibrinogen 283 09/12/17 06:20: White Blood Count 8.6, Red Blood Count 3.03L, Hemoglobin 9.0L, Hematocrit 26.6L , Mean Corpuscular Volume 88, Mean Corpuscular Hemoglobin 29.7, Mean Corpuscular Hemoglobin Concent 33.9, Red Cell Distribution Width 19.2H, Platelet Count 168, Mean Platelet Volume 5.6L, Neutrophils (%) (Auto) 83.0H, Lymphocytes (%) (Auto) 10.0L, Monocytes (%) (Auto) 6.6, Eosinophils (%) (Auto) 0.0, Basophils (%) (Auto) 0.4, Sodium Level 138, Potassium Level 3.2L, Chloride Level 107, Carbon Dioxide Level 23, Anion Gap 8, Blood Urea Nitrogen 13, Creatinine 0.6, Estimat Glomerular Filtration Rate > 60, Glucose Level 168H, Calcium Level 7.7L 09/12/17 10:00: Stool Occult Blood [Pending] Height (Feet): 5 Height (Inches): 5.00 Weight (Pounds): 79 General Appearance: no apparent distress Cardiovascular: normal rate, regular rhythm Respiratory/Chest: lungs clear Abdomen: non tender, soft ARASELI MI Sep 12, 2017 11:42
[2017-09-12 12:00] VITALS: BP 115/78
[2017-09-12] MEDS ORDERED: Vancomycin oral 125mg/2.5ml ORAL SCH (12:00)
[2017-09-12] MEDS ORDERED: Potassium Chloride 20 MEQ in NS 275 ML IVPB ONE (13:00)
[2017-09-12] MEDS: cefTRIAXone 2 GM in NS 55 ML IVPB SCH (14:50)
[2017-09-12 15:52] VITALS: BP 114/73
[2017-09-12] MEDS ORDERED: Tubing IV Secondary IV ONE (17:34)
[2017-09-12] MEDS ORDERED: Tubing Blood Filter IV ONE (17:34)
[2017-09-12] MEDS ORDERED: NS 275ml ONE (17:34)
[2017-09-12] MEDS ORDERED: KCL IV ONE (17:34)
[2017-09-12] MEDS ORDERED: D5NS IV ONE (17:34)
[2017-09-12] MEDS: Vancomycin oral 125mg/2.5ml ORAL SCH (18:27)
[2017-09-12 20:00] VITALS: BP 128/60
--- NOTE | 2017-09-12 20:47 | Infectious Diseases Prog Note ---
Assessment/Plan Problems: (1) C. difficile colitis Assessment & Plan: most likely the source of his sepsis, will start oral vancomycin for 14 days, avoid PPI, and Imodium (2) Leukocytosis Assessment & Plan: rule out sepsis, await blood culture, on ceftriaxon empiric coverage for GI bleeding (3) Coffee ground emesis Assessment & Plan: rule out UGI BLD , continue to monitor H/H, transfuse blood as needed , GI consulted (4) Diabetes Assessment & Plan: recommend tight glycemic control to keep blood glucose between 100-140 Subjective Constitutional: Reports: no symptoms HEENT: Reports: no symptoms Respiratory: Reports: no symptoms Breasts: Reports: no symptoms Cardiovascular: Reports: no symptoms Gastrointestinal/Abdominal: Reports: nausea, diarrhea Genitourinary: Reports: no symptoms Neurologic: Reports: no symptoms Psychiatric: Reports: no symptoms Skin: Reports: no symptoms Endocrine: Reports: no symptoms Hematologic: Reports: no symptoms Allergies: Coded Allergies: No Known Allergies (Unverified , 09/10/17) Objective Vital Signs Last 24 Hour Vital Signs Date Time Temp Pulse Resp B/P (MAP) Pulse Ox O2 Delivery O2 Flow Rate FiO2 09/12/17 16:00 55 09/12/17 15:52 97.9 61 18 114/73 100 Room Air 09/12/17 15:47 98.1 09/12/17 14:48 98.1 09/12/17 12:00 54 09/12/17 12:00 98.1 65 19 115/78 96 Room Air 09/12/17 10:26 97.7 09/12/17 08:04 97.7 65 18 123/79 96 Room Air 09/12/17 08:00 65 09/12/17 04:00 63 09/12/17 04:00 97.5 68 18 137/92 96 Room Air 09/12/17 00:00 97.0 16 115/74 97 Room Air 09/12/17 00:00 68 09/12/17 00:00 62 Height (Feet): 5 Height (Inches): 5.00 Weight (Pounds): 79 General Appearance: WD/WN, no acute distress HEENT: normocephalic, atraumatic, anicteric, mucous membranes moist, PERRL Respiratory/Chest: chest wall non-tender, lungs clear, normal breath sounds, no respiratory distress, no accessory muscle use Cardiovascular: normal peripheral pulses, normal rate, regular rhythm, no gallop/murmur, no JVD Abdomen: soft, non tender, no organomegaly, non distended, no mass, no scars Extremities: no cyanosis, no clubbing Skin: no rash, no lesions Neurologic/Psychiatric: alert, responsive Microbiology Date/Time Source Procedure Growth Status 09/11/17 11:00 Stool Clostridium difficile Toxin Assay - Final Complete Laboratory Tests Test 09/12/17 06:20 09/12/17 10:00 White Blood Count 8.6 K/UL (4.8-10.8) Red Blood Count 3.03 M/UL (4.70-6.10) L Hemoglobin 9.0 G/DL (14.2-18.0) L Hematocrit 26.6 % (42.0-52.0) L Mean Corpuscular Volume 88 FL (80-99) Mean Corpuscular Hemoglobin 29.7 PG (27.0-31.0) Mean Corpuscular Hemoglobin Concent 33.9 G/DL (32.0-36.0) Red Cell Distribution Width 19.2 % (11.6-14.8) H Platelet Count 168 K/UL (150-450) Mean Platelet Volume 5.6 FL (6.5-10.1) L Neutrophils (%) (Auto) 83.0 % (45.0-75.0) H Lymphocytes (%) (Auto) 10.0 % (20.0-45.0) L Monocytes (%) (Auto) 6.6 % (1.0-10.0) Eosinophils (%) (Auto) 0.0 % (0.0-3.0) Basophils (%) (Auto) 0.4 % (0.0-2.0) Sodium Level 138 MMOL/L (136-145) Potassium Level 3.2 MMOL/L (3.5-5.1) L Chloride Level 107 MMOL/L (98-107) Carbon Dioxide Level 23 MMOL/L (21-32) Anion Gap 8 mmol/L (5-15) Blood Urea Nitrogen 13 mg/dL (7-18) Creatinine 0.6 MG/DL (0.55-1.30) Estimat Glomerular Filtration Rate > 60 mL/min (>60) Glucose Level 168 MG/DL (74-106) H Calcium Level 7.7 MG/DL (8.5-10.1) L Stool Occult Blood Pending Current Medications Medications (Trade) Dose Ordered Sig/Nishant Route PRN Reason Start Time Stop Time Status Last Admin Dose Admin Acetaminophen (Tylenol) 650 mg Q4H PRN ORAL Mild Pain (Pain Scale 1-3) 09/12/17 17:26 10/10/17 17:25 Acetaminophen/ Hydrocodone Bitart ([place] 10/325) 1 tab Q4H PRN ORAL Moderate Pain (Pain Scale 4-6) 09/12/17 17:27 09/17/17 17:26 09/12/17 20:08 Ceftriaxone Sodium 2 gm/ Sodium Chloride 55 ml @ 110 mls/hr Q24H IVPB 09/13/17 15:00 09/18/17 14:59 Dextrose (Dextrose 50%) STAT PRN IV Hypoglycemia 09/12/17 17:27 10/10/17 17:26 Dextrose/ Electrolytes 1,000 ml @ 75 mls/hr [id number] IV 09/12/17 17:30 10/10/17 23:38 09/12/17 18:27 Gabapentin (Neurontin) 600 mg EVERY 12 HOURS ORAL 09/12/17 21:00 10/11/17 08:59 09/12/17 20:07 Insulin Aspart (NovoLOG) BEFORE MEALS AND HS SUBQ 09/12/17 21:00 10/11/17 06:29 09/12/17 20:10 Morphine Sulfate (Morphine Sulfate) 2 mg Q4H PRN IVP Severe Breakthru Pain (>7) 09/12/17 17:28 09/17/17 17:27 Ondansetron HCl (Zofran) 4 mg Q6H PRN IVP Nausea & Vomiting 09/12/17 17:28 10/10/17 17:27 Pantoprazole (Protonix) 40 mg EVERY 12 HOURS IVP 09/12/17 21:00 10/11/17 20:59 09/12/17 20:07 Vancomycin HCl (Vancomycin) 125 mg Q6HR ORAL 09/12/17 18:00 09/19/17 23:59 09/12/17 18:27 Jv Eli M.D. Sep 12, 2017 20:47
[2017-09-13] VITALS: BP 139/79
[2017-09-13] MEDS: HYDROcodone/Acetamin 10/325 tab ORAL PRN ×2 (00:17→05:50)
[2017-09-13] MEDS: Vancomycin oral 125mg/2.5ml ORAL SCH ×4 (00:17→17:09)
[2017-09-13 04:00] VITALS: BP 117/77
--- NOTE | 2017-09-13 05:16 | Consultation ---
DATE OF CONSULTATION: 09/12/2017 HEMATOLOGY/ONCOLOGY CONSULTATION CONSULTING PHYSICIAN: Neville Youngblood M.D. REQUESTING PHYSICIANS: 1. . 2. Delonte Quintero M.D. REASON FOR CONSULTATION: Evaluation of pancreatic cancer and anemia. IDENTIFICATION DATA: Dear Dr. Quintero: The patient is a pleasant 62-year-old male with past medical history significant for GERD, hypertension, pancreatic cancer, and diabetes mellitus, at this time presents to the ER with coffee[facility]ground emesis at the [facility]. The patient is a poor historian, unable to provide further information. Transfused with two units of blood. Hematology Service consulted for further evaluation and treatment. Obtained tumor markers at this time. The patient noted to have coagulopathy, which is currently improved and anemia workup reviewed. This patient with anemia of chronic disease. LDH is elevated. Total protein 5.6. Occult blood is pending at the moment. PAST MEDICAL HISTORY: Hypertension, GERD, and pancreatic cancer. PAST SURGICAL HISTORY: Unknown. MEDICATIONS: Pantoprazole, fentanyl, midazolam, Zofran, Mylanta, Apresoline, Benadryl, atropine, and morphine sulfate. SOCIAL HISTORY: He is a nursing home facility resident. No recent alcohol, tobacco, or illicit drug use. FAMILY HISTORY: Difficult to obtain. REVIEW OF SYSTEMS: The patient is a poor historian. PHYSICAL EXAMINATION: VITAL SIGNS: Reviewed. GENERAL: Not in acute distress. PULMONARY: Decreased breath sounds. CARDIOVASCULAR: Regular rate. ABDOMEN: Soft, nontender, and nondistended. Positive bowel sounds. EXTREMITIES: No cyanosis, swelling, or edema. No rash. LABORATORY DATA: WBC 13.4, hemoglobin 8.7, hematocrit 30, and platelet count 186,000. BUN 32 and creatinine 0.8. ASSESSMENT AND RECOMMENDATIONS: 1. Leukocytosis, rule out sepsis, infectious etiology. Blood cultures have been ordered, currently pending. 2. Anemia due to underlying gastrointestinal bleed. Obtain anemia workup. 3. Anemia of chronic disease. Anemia workup has been reviewed. Ferritin is within normal limits. TIBC is low. 4. Diabetes mellitus. Tight blood glucose control recommended between 80 and 140. 5. Gastroesophageal reflux disease. Continue proton pump inhibitor. 6. Pancreatic cancer. Obtain tumor marker. The patient is a poor historian, difficult to obtain further history. I appreciate GI consultation as well as Infectious Disease Service. I appreciate the consultation. Neville Youngblood M.D. DR: Willis JOB#: [id number] CC:
[2017-09-13 05:51] LABS: BASOPHILS % (AUTO) 0.7 % (0.0-2.0); EOSINOPHILS % (AUTO) 0.8 % (0.0-3.0); HEMOGLOBIN 9.1 G/DL (14.2-18.0); LYMPHOCYTES % (AUTO) 23.1 % (20.0-45.0); MEAN CORPUSCULAR VOLUME 88 FL (80-99); MONOCYTES % (AUTO) 11.6 % (1.0-10.0); NEUTROPHILS % (AUTO) 63.9 % (45.0-75.0); PLATELET COUNT 169 K/UL (150-450); RED BLOOD COUNT 3.06 M/UL (4.70-6.10); RED CELL DISTRIBUTION WIDTH 19.4 % (11.6-14.8); WHITE BLOOD COUNT 5.8 K/UL (4.8-10.8)
[2017-09-13] MEDS: NovoLOG Insulin Flexpen SUBQ SCH ×4 (06:40→20:36)
[2017-09-13 08:00] VITALS: BP 105/70
--- NOTE | 2017-09-13 08:28 | General Progress Note ---
Assessment/Plan Problem List: (1) Diabetes ICD Codes: E11.9 - Type 2 diabetes mellitus without complications SNOMED: 00460490 (2) Anemia ICD Codes: D64.9 - Anemia, unspecified SNOMED: 060293487 Qualifiers: Qualified Codes: D64.9 - Anemia, unspecified (3) abdominal malegnancy s/p surgery Assessment/Plan ordered CT fu H&H fu stool ob fu CEA may need colonoscopy, will fu Subjective ROS Limited/Unobtainable: Yes Allergies: Coded Allergies: No Known Allergies (Unverified , 09/10/17) Subjective no abd pain Objective Last 24 Hour Vital Signs Date Time Temp Pulse Resp B/P (MAP) Pulse Ox O2 Delivery O2 Flow Rate FiO2 09/13/17 04:00 96.6 60 20 117/77 97 Room Air 09/13/17 00:00 96.3 62 18 139/79 98 Room Air 09/12/17 20:00 97.5 61 18 128/60 100 Room Air 09/12/17 16:00 55 09/12/17 15:52 97.9 61 18 114/73 100 Room Air 09/12/17 15:47 98.1 09/12/17 14:48 98.1 09/12/17 12:00 54 09/12/17 12:00 98.1 65 19 115/78 96 Room Air 09/12/17 10:26 97.7 Intake and Output 09/12/17 09/13/17 19:00 07:00 Intake Total 1242.5 ml 825 ml Output Total 1125 ml Balance 117.5 ml 825 ml Intake Oral 240 ml IV Total 1002.5 ml 825 ml Output Urine Total 1125 ml # Voids 1 4 # Bowel Movements 1 Laboratory Tests 09/12/17 10:00: Stool Occult Blood [Pending] 09/13/17 03:45: White Blood Count 5.8, Red Blood Count 3.06L, Hemoglobin 9.1L, Hematocrit 27.0L , Mean Corpuscular Volume 88, Mean Corpuscular Hemoglobin 29.8, Mean Corpuscular Hemoglobin Concent 33.9, Red Cell Distribution Width 19.4H, Platelet Count 169, Mean Platelet Volume 4.8L, Neutrophils (%) (Auto) 63.9, Lymphocytes (%) (Auto) 23.1, Monocytes (%) (Auto) 11.6H, Eosinophils (%) (Auto) 0.8, Basophils (%) (Auto) 0.7 Height (Feet): 5 Height (Inches): 5.00 Weight (Pounds): 79 General Appearance: no apparent distress EENT: normal ENT inspection Neck: supple Cardiovascular: normal rate Respiratory/Chest: decreased breath sounds Abdomen: normal bowel sounds, non tender, soft Extremities: non-tender ADELINA SPARKS Sep 13, 2017 08:28
[2017-09-13] MEDS: Pantoprazole Inj IVP SCH ×2 (08:46→20:33)
--- NOTE | 2017-09-13 10:08 | Diagnostic Imaging Report ---
Indication: Abdominal pain Technique: Continuous helical transaxial imaging of the abdomen and pelvis was obtained from the lung bases to the pubic symphysis during intravenous contrast administration. Coronal 2-D reformats were also obtained. Study obtained in a Siemens sensation [address] Automatic Exposure Control was utilized. Total Dose length Product (DLP): 420.[address] Dose Index Volume (CTDIvol): 8.39 mGy Comparison: None Findings: Reticular densities are demonstrated at the lung bases likely atelectasis. There is trace right basilar pleural effusion. Heart is prominent in size. Hiatal hernia noted. Pneumobilia is demonstrated. There is a biliary stent present. Suggestion of a large mass in the area of the pancreatic head. In addition there is a cystic focus measuring 1.3 cm in the area of the uncinate process of the pancreas. There is ascites. Stomach is diffusely nondistended and there is some thickening of the wall of the stomach noted. Kidneys are grossly unremarkable bilaterally. No compelling evidence for bowel obstruction. No free air seen. Patient is cachectic with very little body wall mass. Degenerative changes of lumbar spine are present. There is a questionable catheter within the urethra with the tip possibly in the area of the prostate gland. There is no balloon identified. Please correlate clinically. IMPRESSION: Heterogeneous mass in the area of the pancreatic head suspicious for malignancy. CBD stent noted with pneumobilia present indicating patency of the stent. Mild to moderate ascites. Basilar atelectasis Hiatal hernia Query presence of the catheter within the urethra. There is no balloon definitely seen at the tip and the catheter, if present is below the bladder lumen. Please correlate clinically. The CT scanner at [facility] is accredited by the [employer] and the scans are performed using dose optimization techniques as appropriate to a performed exam including Automatic Exposure control.
[2017-09-13] MEDS: Morphine Sulfate 4mg/ml Inj IVP PRN ×3 (11:07→19:22)
--- NOTE | 2017-09-13 11:39 | Nephrology Progress Note ---
Assessment/Plan Problem List: (1) C. difficile colitis Assessment: on vanco PO (2) Anemia (3) Coffee ground emesis (4) Diabetes (5) Pancreatic cancer (6) GERD (gastroesophageal reflux disease) (7) Leukocytosis (8) abdominal malegnancy s/p surgery Plan GI following. CT noted. Persistent pancreatic mass. Possible colonoscopy. ID following. Abx per ID. D/c telemetry. Patient hemodynamically stable. D/w Dr. Quintero. Subjective Subjective just had large loose stool. Objective Objective Last 24 Hour Vital Signs Date Time Temp Pulse Resp B/P (MAP) Pulse Ox O2 Delivery O2 Flow Rate FiO2 09/13/17 08:00 97.9 57 19 105/70 97 09/13/17 04:00 96.6 60 20 117/77 97 Room Air 09/13/17 00:00 96.3 62 18 139/79 98 Room Air 09/12/17 20:00 97.5 61 18 128/60 100 Room Air 09/12/17 16:00 55 09/12/17 15:52 97.9 61 18 114/73 100 Room Air 09/12/17 15:47 98.1 09/12/17 14:48 98.1 09/12/17 12:00 54 09/12/17 12:00 98.1 65 19 115/78 96 Room Air Intake and Output 09/12/17 09/13/17 19:00 07:00 Intake Total 1242.5 ml 900 ml Output Total 1125 ml Balance 117.5 ml 900 ml Intake Oral 240 ml IV Total 1002.5 ml 900 ml Output Urine Total 1125 ml # Voids 1 4 # Bowel Movements 1 Laboratory Tests 09/13/17 03:45: White Blood Count 5.8, Red Blood Count 3.06L, Hemoglobin 9.1L, Hematocrit 27.0L , Mean Corpuscular Volume 88, Mean Corpuscular Hemoglobin 29.8, Mean Corpuscular Hemoglobin Concent 33.9, Red Cell Distribution Width 19.4H, Platelet Count 169, Mean Platelet Volume 4.8L, Neutrophils (%) (Auto) 63.9, Lymphocytes (%) (Auto) 23.1, Monocytes (%) (Auto) 11.6H, Eosinophils (%) (Auto) 0.8, Basophils (%) (Auto) 0.7 Height (Feet): 5 Height (Inches): 5.00 Weight (Pounds): 79 General Appearance: no apparent distress, thin Cardiovascular: normal rate, regular rhythm Respiratory/Chest: lungs clear Abdomen: non tender, soft Neurologic: alert ARASELI MI Sep 13, 2017 11:39
[2017-09-13 11:43] VITALS: BP 118/77
--- NOTE | 2017-09-13 14:14 | Infectious Diseases Prog Note ---
Assessment/Plan Problems: (1) C. difficile colitis Assessment & Plan: most likely the source of his sepsis, continue oral vancomycin for 14 days, avoid PPI, and Imodium (2) Leukocytosis Assessment & Plan: rule out sepsis, await blood culture, on ceftriaxon empiric coverage for GI bleeding (3) Coffee ground emesis Assessment & Plan: rule out UGI BLD , continue to monitor H/H, transfuse blood as needed , GI consulted (4) Diabetes Assessment & Plan: recommend tight glycemic control to keep blood glucose between 100-140 Subjective Constitutional: Reports: anorexia HEENT: Reports: no symptoms Respiratory: Reports: no symptoms Breasts: Reports: no symptoms Cardiovascular: Reports: no symptoms Gastrointestinal/Abdominal: Reports: diarrhea Genitourinary: Reports: no symptoms Neurologic: Reports: no symptoms Psychiatric: Reports: no symptoms Skin: Reports: no symptoms Endocrine: Reports: no symptoms Hematologic: Reports: no symptoms Musculoskeletal: Reports: no symptoms Allergies: Coded Allergies: No Known Allergies (Unverified , 09/10/17) Objective Vital Signs Last 24 Hour Vital Signs Date Time Temp Pulse Resp B/P (MAP) Pulse Ox O2 Delivery O2 Flow Rate FiO2 09/13/17 11:43 96.1 58 19 118/77 98 09/13/17 08:00 97.9 57 19 105/70 97 09/13/17 04:00 96.6 60 20 117/77 97 Room Air 09/13/17 00:00 96.3 62 18 139/79 98 Room Air 09/12/17 20:00 97.5 61 18 128/60 100 Room Air 09/12/17 16:00 55 09/12/17 15:52 97.9 61 18 114/73 100 Room Air 09/12/17 15:47 98.1 09/12/17 14:48 98.1 Height (Feet): 5 Height (Inches): 5.00 Weight (Pounds): 79 General Appearance: WD/WN, no acute distress HEENT: normocephalic, atraumatic, anicteric, mucous membranes moist, PERRL Respiratory/Chest: chest wall non-tender, lungs clear, normal breath sounds, no respiratory distress, no accessory muscle use Cardiovascular: normal peripheral pulses, normal rate, regular rhythm, no gallop/murmur, no JVD Abdomen: normal bowel sounds, soft, non tender, no organomegaly, non distended , no mass, no scars Extremities: no cyanosis, no clubbing Skin: no rash, no lesions, ulcers Neurologic/Psychiatric: alert, responsive Microbiology Date/Time Source Procedure Growth Status 09/11/17 16:00 Blood Blood Culture - Preliminary NO GROWTH AFTER 24 HOURS Resulted 09/11/17 15:48 Blood Blood Culture - Preliminary NO GROWTH AFTER 24 HOURS Resulted 09/10/17 15:50 Nasal Nares MRSA Culture - Final NO METHICILLIN RESISTANT STAPH AUREUS... Complete 09/11/17 11:00 Stool Clostridium difficile Toxin Assay - Final Complete 09/10/17 15:50 Rectum VRE Culture - Final NO VANCOMYCIN RESISTANT ENTEROCOCCUS ... Complete Laboratory Tests Test 09/13/17 03:45 White Blood Count 5.8 K/UL (4.8-10.8) Red Blood Count 3.06 M/UL (4.70-6.10) L Hemoglobin 9.1 G/DL (14.2-18.0) L Hematocrit 27.0 % (42.0-52.0) L Mean Corpuscular Volume 88 FL (80-99) Mean Corpuscular Hemoglobin 29.8 PG (27.0-31.0) Mean Corpuscular Hemoglobin Concent 33.9 G/DL (32.0-36.0) Red Cell Distribution Width 19.4 % (11.6-14.8) H Platelet Count 169 K/UL (150-450) Mean Platelet Volume 4.8 FL (6.5-10.1) L Neutrophils (%) (Auto) 63.9 % (45.0-75.0) Lymphocytes (%) (Auto) 23.1 % (20.0-45.0) Monocytes (%) (Auto) 11.6 % (1.0-10.0) H Eosinophils (%) (Auto) 0.8 % (0.0-3.0) Basophils (%) (Auto) 0.7 % (0.0-2.0) Current Medications Medications (Trade) Dose Ordered Sig/Nishant Route PRN Reason Start Time Stop Time Status Last Admin Dose Admin Acetaminophen (Tylenol) 650 mg Q4H PRN ORAL Mild Pain (Pain Scale 1-3) 09/12/17 17:26 10/10/17 17:25 Acetaminophen/ Hydrocodone Bitart ([place] 10/325) 1 tab Q4H PRN ORAL Moderate Pain (Pain Scale 4-6) 09/12/17 17:27 09/17/17 17:26 09/13/17 05:50 Ceftriaxone Sodium 2 gm/ Sodium Chloride 55 ml @ 110 mls/hr Q24H IVPB 09/13/17 15:00 09/18/17 14:59 Dextrose (Dextrose 50%) STAT PRN IV Hypoglycemia 09/12/17 17:27 10/10/17 17:26 Dextrose/ Electrolytes 1,000 ml @ 75 mls/hr [id number] IV 09/12/17 17:30 10/10/17 23:38 09/13/17 09:25 Gabapentin (Neurontin) 600 mg EVERY 12 HOURS ORAL 09/12/17 21:00 10/11/17 08:59 09/13/17 08:46 Insulin Aspart (NovoLOG) BEFORE MEALS AND HS SUBQ 09/12/17 21:00 10/11/17 06:29 09/13/17 06:40 Morphine Sulfate (Morphine Sulfate) 2 mg Q4H PRN IVP Severe Breakthru Pain (>7) 09/12/17 17:28 09/17/17 17:27 09/13/17 11:07 Ondansetron HCl (Zofran) 4 mg Q6H PRN IVP Nausea & Vomiting 09/12/17 17:28 10/10/17 17:27 Pantoprazole (Protonix) 40 mg EVERY 12 HOURS IVP 09/12/17 21:00 10/11/17 20:59 09/13/17 08:46 Vancomycin HCl (Vancomycin) 125 mg Q6HR ORAL 09/12/17 18:00 09/19/17 23:59 09/13/17 12:05 Jv Eli M.D. Sep 13, 2017 14:14
[2017-09-13] MEDS: cefTRIAXone 2 GM in NS 55 ML IVPB SCH (15:06)
[2017-09-13 16:00] VITALS: BP 115/77
[2017-09-13 20:00] VITALS: BP 116/77
[2017-09-14] VITALS (7 sets, daily range): BP systolic 117–148; BP diastolic 71–91
--- NOTE | 2017-09-14 00:33 | General Progress Note ---
Assessment/Plan Assessment/Plan 1. Leukocytosis, rule out sepsis, infectious etiology. --> Blood cultures have been ordered, currently pending. 2. Anemia due to underlying gastrointestinal bleed. --> Anemia workup reviewed. --> Iron 47, TIBC 120, Ferritin 134, Vit B12 678, Folate 8 --> Occult blood ++, consider GI consult. Appreciate recs. 3. Anemia of chronic disease. --> Anemia workup has been reviewed. --> Ferritin is within normal limits. TIBC is low. Folate is low. 4. Diabetes mellitus. --> Tight blood glucose control recommended between 80 and 140. 5. Gastroesophageal reflux disease. --> Continue proton pump inhibitor. 6. Pancreatic cancer. --> Obtain tumor marker. Subjective Date patient seen: Sep 13, 2017 Constitutional: Denies: no symptoms, chills, diaphoresis, fever, malaise, weakness, other HEENT: Denies: no symptoms, eye pain, blurred vision, tearing, double vision, ear pain, ear discharge, nose pain, nose congestion, throat pain, throat swelling, mouth pain, mouth swelling, other Cardiovascular: Denies: no symptoms, chest pain, edema, irregular heart rate, lightheadedness, palpitations, syncope, other Respiratory: Denies: no symptoms, cough, orthopnea, shortness of breath, SOB with excertion, SOB at rest, sputum, stridor, wheezing, other Gastrointestinal/Abdominal: Denies: no symptoms, abdomen distended, abdominal pain, black stools, tarry stools, blood in stool, constipated, diarrhea, difficulty swallowing, nausea, poor appetite, poor fluid intake, rectal bleeding , vomiting, other Genitourinary: Denies: no symptoms, burning, discharge, frequency, flank pain, hematuria, incontinence, pain, urgency, other Hematologic/Lymphatic: Reports: anemia Allergies: Coded Allergies: No Known Allergies (Unverified , 09/10/17) Subjective Hematochezia detected. H/H stable. No acute distress. Objective Last 24 Hour Vital Signs Date Time Temp Pulse Resp B/P (MAP) Pulse Ox O2 Delivery O2 Flow Rate FiO2 09/13/17 20:46 97.7 09/13/17 20:00 97.5 64 18 116/77 98 09/13/17 16:00 97.7 64 20 115/77 97 09/13/17 11:43 96.1 58 19 118/77 98 09/13/17 08:00 97.9 57 19 105/70 97 09/13/17 04:00 96.6 60 20 117/77 97 Room Air Intake and Output 09/13/17 09/14/17 19:00 07:00 Intake Total 940 ml 375 ml Balance 940 ml 375 ml Intake Oral 360 ml IV Total 580 ml 375 ml # Voids 4 # Bowel Movements 2 Laboratory Tests 09/13/17 03:45: White Blood Count 5.8, Red Blood Count 3.06L, Hemoglobin 9.1L, Hematocrit 27.0L , Mean Corpuscular Volume 88, Mean Corpuscular Hemoglobin 29.8, Mean Corpuscular Hemoglobin Concent 33.9, Red Cell Distribution Width 19.4H, Platelet Count 169, Mean Platelet Volume 4.8L, Neutrophils (%) (Auto) 63.9, Lymphocytes (%) (Auto) 23.1, Monocytes (%) (Auto) 11.6H, Eosinophils (%) (Auto) 0.8, Basophils (%) (Auto) 0.7 Height (Feet): 5 Height (Inches): 5.00 Weight (Pounds): 79 General Appearance: confused EENT: normal ENT inspection Cardiovascular: normal rate, regular rhythm Respiratory/Chest: decreased breath sounds Abdomen: non tender, soft Neville Youngblood Sep 14, 2017 00:33
[2017-09-14] MEDS: Morphine Sulfate 4mg/ml Inj IVP PRN ×4 (00:37→15:48)
[2017-09-14] MEDS: Vancomycin oral 125mg/2.5ml ORAL SCH ×5 (00:38→22:59)
[2017-09-14] MEDS: NovoLOG Insulin Flexpen SUBQ SCH ×4 (06:00→20:24)
--- NOTE | 2017-09-14 06:44 | Immediate Post-Op Evaluation ---
Immediate Post-Op Evalulation Immediate Post-Op Evalulation Date of Evaluation: Sep 11, 2017 Time of Evaluation: 13:46 IV Fluids: 150ml 0.9ns Blood Products: none Estimated Blood Loss: negligible Blood Pressure Systolic: 166 Blood Pressure Diastolic: 69 Pulse Rate: 65 Respiratory Rate: 18 O2 Sat by Pulse Oximetry: 100 Temperature (Fahrenheit): 98.3 Pain Score (1-10): 0 Nausea: No Vomiting: No Complications none Patient Status: awake, reacts, patent Hydration Status: adequate Drug: MISAEL Kaye Sep 14, 2017 06:44
--- NOTE | 2017-09-14 06:45 | 48 Hour Post Anesthesia Eval ---
MISAEL GROVE Sep 14, 2017 06:45
--- NOTE | 2017-09-14 07:13 | Anethesia Preoperative Eval ---
Anesthesia Pre-op PMH/ROS General Date of Evaluation: Sep 14, 2017 Time of Evaluation: 07:09 Anesthesiologist: avril ASA Score: ASA 3 Mallampati Score Class I : Soft palate, uvula, fauces, pillars visible Class II: Soft palate, uvula, fauces visible Class III: Soft palate, base of uvula visible Class IV: Only hard plate visible Mallampati Classification: Class II Surgeon: christina Diagnosis: gi bleed Surgical Procedure: colonoscopy Anesthesia History: none Social History: smoking - nonsmoker Family History: no anesthesia problems Allergies: Coded Allergies: No Known Allergies (Unverified , 09/10/17) Medications: see eMAR Past Medical History Gastrointestinal/Genitourinary: Reports: GERD, other - jaundice, pancreatic cancer, gerd, Neurologic/Psychiatric: Reports: other - peripheral neuropathy Endocrine: Reports: DM Hematology/Immune: Reports: anemia Anesthesia Pre-op Phys. Exam Physician Exam Last Vital Signs Date Time Temp Pulse Resp B/P (MAP) Pulse Ox O2 Delivery O2 Flow Rate FiO2 09/14/17 05:59 97.7 09/14/17 04:17 66 16 117/87 100 09/13/17 04:00 Room Air 09/11/17 16:00 98.0 Airway Exam Mallampati Score: Class II MO: limited Neck: short TMD: 2fb ROM: limited Teeth: missing Anesthesia Pre-op A/P Labs Labs Test 09/11/17 09:10 09/11/17 15:45 09/11/17 18:10 09/12/17 06:20 White Blood Count 13.4 K/UL (4.8-10.8) 10.2 K/UL (4.8-10.8) 8.6 K/UL (4.8-10.8) Red Blood Count 2.96 M/UL (4.70-6.10) 2.60 M/UL (4.70-6.10) 3.03 M/UL (4.70-6.10) Hemoglobin 8.7 G/DL (14.2-18.0) 7.8 G/DL (14.2-18.0) 9.0 G/DL (14.2-18.0) Hematocrit 26.1 % (42.0-52.0) 22.7 % (42.0-52.0) 26.6 % (42.0-52.0) Mean Corpuscular Volume 88 FL (80-99) 87 FL (80-99) 88 FL (80-99) Mean Corpuscular Hemoglobin 29.5 PG (27.0-31.0) 29.9 PG (27.0-31.0) 29.7 PG (27.0-31.0) Mean Corpuscular Hemoglobin Concent 33.5 G/DL (32.0-36.0) 34.3 G/DL (32.0-36.0) 33.9 G/DL (32.0-36.0) Red Cell Distribution Width 19.6 % (11.6-14.8) 19.3 % (11.6-14.8) 19.2 % (11.6-14.8) Platelet Count 186 K/UL (150-450) 173 K/UL (150-450) 168 K/UL (150-450) Mean Platelet Volume 5.4 FL (6.5-10.1) 5.5 FL (6.5-10.1) 5.6 FL (6.5-10.1) Neutrophils (%) (Auto) % (45.0-75.0) 86.0 % (45.0-75.0) 83.0 % (45.0-75.0) Lymphocytes (%) (Auto) % (20.0-45.0) 8.0 % (20.0-45.0) 10.0 % (20.0-45.0) Monocytes (%) (Auto) % (1.0-10.0) 5.8 % (1.0-10.0) 6.6 % (1.0-10.0) Eosinophils (%) (Auto) % (0.0-3.0) 0.0 % (0.0-3.0) 0.0 % (0.0-3.0) Basophils (%) (Auto) % (0.0-2.0) 0.3 % (0.0-2.0) 0.4 % (0.0-2.0) Differential Total Cells Counted 100 Neutrophils % (Manual) 91 % (45-75) Lymphocytes % (Manual) 7 % (20-45) Monocytes % (Manual) 2 % (1-10) Eosinophils % (Manual) 0 % (0-3) Basophils % (Manual) 0 % (0-2) Band Neutrophils 0 % (0-8) Platelet Estimate Adequate Platelet Morphology Normal Hypochromasia 1+ Anisocytosis 1+ Sodium Level 140 MMOL/L (136-145) 138 MMOL/L (136-145) Potassium Level 4.0 MMOL/L (3.5-5.1) 3.2 MMOL/L (3.5-5.1) Chloride Level 110 MMOL/L (98-107) 107 MMOL/L (98-107) Carbon Dioxide Level 25 MMOL/L (21-32) 23 MMOL/L (21-32) Anion Gap 5 mmol/L (5-15) 8 mmol/L (5-15) Blood Urea Nitrogen 32 mg/dL (7-18) 13 mg/dL (7-18) Creatinine 0.8 MG/DL (0.55-1.30) 0.6 MG/DL (0.55-1.30) Estimat Glomerular Filtration Rate > 60 mL/min (>60) > 60 mL/min (>60) Glucose Level 147 MG/DL (74-106) 168 MG/DL (74-106) Calcium Level 7.5 MG/DL (8.5-10.1) 7.7 MG/DL (8.5-10.1) Reticulocyte Count 0.8 % (0.0-2.0) Iron Level 47 ug/dL (50-175) Total Iron Binding Capacity 120 ug/dL (250-450) Percent Iron Saturation 39 % (15-50) Unsaturated Iron Binding 73 ug/dL (112-346) Ferritin 134 NG/ML (8-388) Lactate Dehydrogenase 412 U/L (81-234) Vitamin B12 Level 678 PG/ML (193-986) Folate 8.0 NG/ML (8.6-58.9) Prothrombin Time 11.6 SEC (9.30-11.50) Prothromb Time International Ratio 1.1 (0.9-1.1) Fibrinogen 283 mg/dL (200-400) Test 09/12/17 10:00 09/13/17 03:45 Stool Occult Blood Positive (NEGATIVE) White Blood Count 5.8 K/UL (4.8-10.8) Red Blood Count 3.06 M/UL (4.70-6.10) Hemoglobin 9.1 G/DL (14.2-18.0) Hematocrit 27.0 % (42.0-52.0) Mean Corpuscular Volume 88 FL (80-99) Mean Corpuscular Hemoglobin 29.8 PG (27.0-31.0) Mean Corpuscular Hemoglobin Concent 33.9 G/DL (32.0-36.0) Red Cell Distribution Width 19.4 % (11.6-14.8) Platelet Count 169 K/UL (150-450) Mean Platelet Volume 4.8 FL (6.5-10.1) Neutrophils (%) (Auto) 63.9 % (45.0-75.0) Lymphocytes (%) (Auto) 23.1 % (20.0-45.0) Monocytes (%) (Auto) 11.6 % (1.0-10.0) Eosinophils (%) (Auto) 0.8 % (0.0-3.0) Basophils (%) (Auto) 0.7 % (0.0-2.0) Risk Assessment & Plan Assessment: asa3 Plan: MISAEL Hernandes Sep 14, 2017 07:13
[2017-09-14] MEDS ORDERED: DiphenhydrAMINE 50mg/ml Inj IVP PRN (07:15)
[2017-09-14] MEDS ORDERED: fentaNYL 100 mcg/2 mL IV PRN (07:15)
[2017-09-14] MEDS ORDERED: Atropine Inj 1mg/10ml Syr IV PRN (07:15)
[2017-09-14] MEDS ORDERED: Midazolam 2mg/2ml Inj IVP PRN (07:15)
--- NOTE | 2017-09-14 07:48 | 48 Hour Post Anesthesia Eval ---
Post Anesthesia Evaluation Procedure: egd Date of Evaluation: Sep 11, 2017 Time of Evaluation: 13:48 Blood Pressure Systolic: 104 0: 70 Pulse Rate: 68 Respiratory Rate: 16 Temperature (Fahrenheit): 98.3 O2 Sat by Pulse Oximetry: 100 Airway: patent Nausea: No Vomiting: No Pain Intensity: 0 Hydration Status: adequate Cardiopulmonary Status: stable Mental Status/LOC: patient returned to baseline Post-Anesthesia Complications: none Follow-up care needed: N/A MISAEL GROVE Sep 14, 2017 07:48
[2017-09-14] MEDS: Pantoprazole Inj IVP SCH ×2 (08:46→20:22)
[2017-09-14 10:48] LABS: BASOPHILS % (AUTO) 1.2 % (0.0-2.0); EOSINOPHILS % (AUTO) 0.9 % (0.0-3.0); HEMATOCRIT 34.8 % (42.0-52.0); HEMOGLOBIN 11.4 G/DL (14.2-18.0); LYMPHOCYTES % (AUTO) 21.5 % (20.0-45.0); MEAN CORPUSCULAR VOLUME 89 FL (80-99); MONOCYTES % (AUTO) 11.3 % (1.0-10.0); NEUTROPHILS % (AUTO) 65.2 % (45.0-75.0); PLATELET COUNT 226 K/UL (150-450); RED CELL DISTRIBUTION WIDTH 19.2 % (11.6-14.8); WHITE BLOOD COUNT 4.6 K/UL (4.8-10.8)
--- NOTE | 2017-09-14 10:50 | GI Progress Note ---
Assessment/Plan Problems: (1) Pancreatic cancer ICD Codes: C25.9 - Malignant neoplasm of pancreas, unspecified SNOMED: 513941288 (2) Jaundice ICD Codes: R17 - Unspecified jaundice SNOMED: 25651703 (3) Anemia due to blood loss, acute ICD Codes: D62 - Acute posthemorrhagic anemia SNOMED: 647174649 (4) Coffee ground emesis ICD Codes: K92.0 - Hematemesis SNOMED: 690411038, 00974851 (5) Anemia ICD Codes: D64.9 - Anemia, unspecified SNOMED: 542598547 Qualifiers: Qualified Codes: D64.9 - Anemia, unspecified Status: stable Status Narrative Discussed with Dr. Caicedo. Assessment/Plan colonoscopy cancelled. CT AP reviewed >> Heterogeneous mass in the area of the pancreatic head suspicious for malignancy. CBD stent noted with pneumobilia present indicating patency of the stent. plan CT guided pancreatic mass biopsy >> unable to be performed, EUS + FNA to be scheduled tomorrow. - NPO @ [facility]. paracentesis r/o SBP monitor H&H, prn transfusions bowel regime ppi fu labs, CA19-9 Subjective Gastrointestinal/Abdominal: Reports: no symptoms Objective Last 24 Hour Vital Signs Date Time Temp Pulse Resp B/P (MAP) Pulse Ox O2 Delivery O2 Flow Rate FiO2 09/14/17 08:00 97.7 60 18 133/86 96 09/14/17 07:48 208.9 68 16 100 09/14/17 07:46 208.9 65 18 100 09/14/17 05:59 97.7 09/14/17 05:24 97.7 09/14/17 04:17 97.7 66 16 117/87 100 09/14/17 00:37 97.6 09/14/17 00:32 97.6 61 17 120/71 98 09/13/17 20:00 97.5 64 18 116/77 98 09/13/17 16:00 97.7 64 20 115/77 97 09/13/17 11:43 96.1 58 19 118/77 98 Intake and Output 09/13/17 09/14/17 19:00 07:00 Intake Total 940 ml 825 ml Balance 940 ml 825 ml Intake Oral 360 ml IV Total 580 ml 825 ml # Voids 4 3 # Bowel Movements 2 Laboratory Tests Test 2/19/18 10:15 White Blood Count Pending Red Blood Count Pending Hemoglobin Pending Hematocrit Pending Mean Corpuscular Volume Pending Mean Corpuscular Hemoglobin Pending Mean Corpuscular Hemoglobin Concent Pending Red Cell Distribution Width Pending Platelet Count Pending Mean Platelet Volume Pending Neutrophils (%) (Auto) Pending Lymphocytes (%) (Auto) Pending Monocytes (%) (Auto) Pending Eosinophils (%) (Auto) Pending Basophils (%) (Auto) Pending Height (Feet): 5 Height (Inches): 5.00 Weight (Pounds): 79 General Appearance: WD/WN, no apparent distress, alert, thin Cardiovascular: normal rate Respiratory/Chest: normal breath sounds, no respiratory distress Abdominal Exam: normal bowel sounds, non tender, soft Extremities: non-tender Clemencia Topete N.P. Sep 14, 2017 10:50
[2017-09-14] MEDS ORDERED: Lidocaine 1% MPF 10mg/ml 5ml INJ ONE (13:00)
[2017-09-14] MEDS: cefTRIAXone 2 GM in NS 55 ML IVPB SCH (14:40)
--- NOTE | 2017-09-14 16:52 | Nephrology Progress Note ---
Assessment/Plan Problem List: (1) Anemia (2) Coffee ground emesis (3) Diabetes (4) Pancreatic cancer (5) GERD (gastroesophageal reflux disease) Plan Continue current treatment plan EUS + FNA to be scheduled tomorrow Paracentesis scheduled tomorrow Monitor H&H, transfuse prn Pain management prn Monitor lytes, correct prn F/U with consults rec Replete potassium Abx per ID Daily PPI Monitor neuro status AM labs Subjective Constitutional: Denies: no symptoms, chills, diaphoresis, fever, malaise, weakness, other HEENT: Denies: no symptoms, eye pain, blurred vision, tearing, double vision, ear pain, ear discharge, nose pain, nose congestion, throat pain, throat swelling, mouth pain, mouth swelling, other Genitourinary: Denies: no symptoms, burning, discharge, frequency, flank pain, hematuria, incontinence, pain, urgency, other Neurologic/Psychiatric: Denies: no symptoms, anxiety, depressed, emotional problems, headache, numbness, paresthesia, pre-existing deficit, seizure, tingling, tremors, weakness, other Subjective In bed asleep, arousable, in no apparent distress Objective Objective Last 24 Hour Vital Signs Date Time Temp Pulse Resp B/P (MAP) Pulse Ox O2 Delivery O2 Flow Rate FiO2 09/14/17 15:48 96.8 63 20 148/88 100 Room Air 09/14/17 12:00 97.3 56 17 135/85 97 09/14/17 08:00 97.7 60 18 133/86 96 09/14/17 07:48 208.9 68 16 100 09/14/17 07:46 208.9 65 18 100 09/14/17 05:59 97.7 09/14/17 05:24 97.7 09/14/17 04:17 97.7 66 16 117/87 100 09/14/17 00:37 97.6 09/14/17 00:32 97.6 61 17 120/71 98 09/13/17 20:00 97.5 64 18 116/77 98 Intake and Output 09/13/17 09/14/17 19:00 07:00 Intake Total 940 ml 825 ml Balance 940 ml 825 ml Intake Oral 360 ml IV Total 580 ml 825 ml # Voids 4 3 # Bowel Movements 2 Laboratory Tests 09/14/17 10:15: White Blood Count 4.6L, Red Blood Count 3.90L, Hemoglobin 11.4L, Hematocrit 34.8L, Mean Corpuscular Volume 89, Mean Corpuscular Hemoglobin 29.3, Mean Corpuscular Hemoglobin Concent 32.9, Red Cell Distribution Width 19.2H, Platelet Count 226, Mean Platelet Volume 5.4L, Neutrophils (%) (Auto) 65.2, Lymphocytes (%) (Auto) 21.5, Monocytes (%) (Auto) 11.3H, Eosinophils (%) (Auto) 0.9, Basophils (%) (Auto) 1.2 09/14/17 12:41: Prothrombin Time 10.4, Prothromb Time International Ratio 1.0, Activated Partial Thromboplast Time 29 Height (Feet): 5 Height (Inches): 5.00 Weight (Pounds): 79 General Appearance: no apparent distress, confused, other EENT: normal ENT inspection Neck: normal alignment, supple Cardiovascular: normal rate, regular rhythm Respiratory/Chest: lungs clear, normal breath sounds, no respiratory distress Abdomen: distended Extremities: non-tender, normal inspection Neurologic: alert, responsive, normal mood/affect Tika Marvin N.P. Sep 14, 2017 16:52
--- NOTE | 2017-09-14 21:05 | Infectious Diseases Prog Note ---
Assessment/Plan Problems: (1) C. difficile colitis Assessment & Plan: most likely the source of his sepsis, continue oral vancomycin for 14 days, avoid PPI, and Imodium (2) Leukocytosis Assessment & Plan: rule out sepsis, blood culture remains negative , on ceftriaxon empiric coverage for GI bleeding (3) Coffee ground emesis Assessment & Plan: rule out UGI BLD , continue to monitor H/H, transfuse blood as needed , GI consulted (4) Diabetes Assessment & Plan: recommend tight glycemic control to keep blood glucose between 100-140 (5) Pancreatic cancer Assessment & Plan: for EUS and pancreatic head biopsy tomorrow by GI Subjective Constitutional: Reports: no symptoms HEENT: Reports: no symptoms Respiratory: Reports: no symptoms Cardiovascular: Reports: no symptoms Gastrointestinal/Abdominal: Reports: diarrhea, bloating, other - abdominal pain Genitourinary: Reports: no symptoms Neurologic: Reports: no symptoms Psychiatric: Reports: no symptoms Skin: Reports: no symptoms Endocrine: Reports: no symptoms Hematologic: Reports: no symptoms Musculoskeletal: Reports: no symptoms Allergies: Coded Allergies: No Known Allergies (Unverified , 09/10/17) Objective Vital Signs Last 24 Hour Vital Signs Date Time Temp Pulse Resp B/P (MAP) Pulse Ox O2 Delivery O2 Flow Rate FiO2 09/14/17 19:40 96.5 65 20 133/91 99 Room Air 09/14/17 15:48 96.8 63 20 148/88 100 Room Air 09/14/17 12:00 97.3 56 17 135/85 97 09/14/17 08:00 97.7 60 18 133/86 96 09/14/17 07:48 208.9 68 16 100 09/14/17 07:46 208.9 65 18 100 09/14/17 05:59 97.7 09/14/17 05:24 97.7 09/14/17 04:17 97.7 66 16 117/87 100 09/14/17 00:37 97.6 09/14/17 00:32 97.6 61 17 120/71 98 Height (Feet): 5 Height (Inches): 5.00 Weight (Pounds): 79 General Appearance: WD/WN, no acute distress HEENT: normocephalic, atraumatic, anicteric, mucous membranes moist Respiratory/Chest: chest wall non-tender, lungs clear, normal breath sounds, no respiratory distress, no accessory muscle use Breasts: no masses Cardiovascular: normal peripheral pulses, normal rate, regular rhythm, no gallop/murmur, no JVD Abdomen: normal bowel sounds, no organomegaly, no mass, no scars, hypoactive bowel sounds, distended, tender Extremities: no cyanosis, no clubbing Skin: no rash, no lesions, ulcers Neurologic/Psychiatric: alert Musculoskeletal: normal muscle bulk Laboratory Tests Test 09/14/17 10:15 09/14/17 12:41 White Blood Count 4.6 K/UL (4.8-10.8) L Red Blood Count 3.90 M/UL (4.70-6.10) L Hemoglobin 11.4 G/DL (14.2-18.0) L Hematocrit 34.8 % (42.0-52.0) L Mean Corpuscular Volume 89 FL (80-99) Mean Corpuscular Hemoglobin 29.3 PG (27.0-31.0) Mean Corpuscular Hemoglobin Concent 32.9 G/DL (32.0-36.0) Red Cell Distribution Width 19.2 % (11.6-14.8) H Platelet Count 226 K/UL (150-450) Mean Platelet Volume 5.4 FL (6.5-10.1) L Neutrophils (%) (Auto) 65.2 % (45.0-75.0) Lymphocytes (%) (Auto) 21.5 % (20.0-45.0) Monocytes (%) (Auto) 11.3 % (1.0-10.0) H Eosinophils (%) (Auto) 0.9 % (0.0-3.0) Basophils (%) (Auto) 1.2 % (0.0-2.0) Prothrombin Time 10.4 SEC (9.30-11.50) Prothromb Time International Ratio 1.0 (0.9-1.1) Activated Partial Thromboplast Time 29 SEC (23-33) Current Medications Medications (Trade) Dose Ordered Sig/Nishant Route PRN Reason Start Time Stop Time Status Last Admin Dose Admin Acetaminophen (Tylenol) 650 mg Q4H PRN ORAL Mild Pain (Pain Scale 1-3) 09/12/17 17:26 10/10/17 17:25 Acetaminophen/ Hydrocodone Bitart ([place] 10/325) 1 tab Q4H PRN ORAL Moderate Pain (Pain Scale 4-6) 09/12/17 17:27 09/17/17 17:26 09/13/17 05:50 Ceftriaxone Sodium 2 gm/ Sodium Chloride 55 ml @ 110 mls/hr Q24H IVPB 09/13/17 15:00 09/18/17 14:59 09/14/17 14:40 Dextrose (Dextrose 50%) STAT PRN IV Hypoglycemia 09/12/17 17:27 10/10/17 17:26 Dextrose/ Electrolytes 1,000 ml @ 75 mls/hr [id number] IV 09/12/17 17:30 10/10/17 23:38 09/14/17 13:53 Gabapentin (Neurontin) 600 mg EVERY 12 HOURS ORAL 09/12/17 21:00 10/11/17 08:59 09/14/17 20:22 Insulin Aspart (NovoLOG) BEFORE MEALS AND HS SUBQ 09/12/17 21:00 10/11/17 06:29 09/14/17 20:24 Morphine Sulfate (Morphine Sulfate) 2 mg Q4H PRN IVP Severe Breakthru Pain (>7) 09/12/17 17:28 09/17/17 17:27 09/14/17 15:48 Ondansetron HCl (Zofran) 4 mg Q6H PRN IVP Nausea & Vomiting 09/12/17 17:28 10/10/17 17:27 Pantoprazole (Protonix) 40 mg EVERY 12 HOURS IVP 09/12/17 21:00 10/11/17 20:59 09/14/17 20:22 Vancomycin HCl (Vancomycin) 125 mg Q6HR ORAL 09/12/17 18:00 09/19/17 23:59 09/14/17 17:17 Jv Eli M.D. Sep 14, 2017 21:05
[2017-09-15] VITALS (10 sets, daily range): BP systolic 116–153; BP diastolic 76–98
[2017-09-15] MEDS: Morphine Sulfate 4mg/ml Inj IVP PRN ×3 (03:19→15:32)
[2017-09-15] MEDS: Vancomycin oral 125mg/2.5ml ORAL SCH ×4 (06:00→22:54)
[2017-09-15] MEDS: NovoLOG Insulin Flexpen SUBQ SCH ×4 (06:22→20:18)
[2017-09-15] MEDS: Pantoprazole Inj IVP SCH ×2 (08:33→20:18)
--- NOTE | 2017-09-15 09:57 | General Progress Note ---
Assessment/Plan Assessment/Plan #. Anemia due to underlying gastrointestinal bleed. --> Anemia workup reviewed. --> Iron 47, TIBC 120, Ferritin 134, Vit B12 678, Folate 8 --> Occult blood ++, consider GI consult. Appreciate recs. #. Anemia of chronic disease. --> Anemia workup has been reviewed. --> Ferritin is within normal limits. TIBC is low. Folate is low. #. Diabetes mellitus. --> Tight blood glucose control recommended between 80 and 140. #. Gastroesophageal reflux disease. --> Continue proton pump inhibitor. #. Pancreatic cancer. --> Tumor markers reviewed. #. Leukocytosis, rule out sepsis, infectious etiology. --> Resolved. --> Blood cultures have been ordered, results were negative. Subjective Date patient seen: Sep 14, 2017 Constitutional: Denies: no symptoms, chills, diaphoresis, fever, malaise, weakness, other HEENT: Denies: no symptoms, eye pain, blurred vision, tearing, double vision, ear pain, ear discharge, nose pain, nose congestion, throat pain, throat swelling, mouth pain, mouth swelling, other Cardiovascular: Denies: no symptoms, chest pain, edema, irregular heart rate, lightheadedness, palpitations, syncope, other Respiratory: Denies: no symptoms, cough, orthopnea, shortness of breath, SOB with excertion, SOB at rest, sputum, stridor, wheezing, other Gastrointestinal/Abdominal: Denies: no symptoms, abdomen distended, abdominal pain, black stools, tarry stools, blood in stool, constipated, diarrhea, difficulty swallowing, nausea, poor appetite, poor fluid intake, rectal bleeding , vomiting, other Genitourinary: Denies: no symptoms, burning, discharge, frequency, flank pain, hematuria, incontinence, pain, urgency, other Hematologic/Lymphatic: Reports: anemia Allergies: Coded Allergies: No Known Allergies (Unverified , 09/10/17) Subjective No major events overnight. Resting in bed. H/H stable. Objective Last 24 Hour Vital Signs Date Time Temp Pulse Resp B/P (MAP) Pulse Ox O2 Delivery O2 Flow Rate FiO2 09/15/17 08:00 96.6 65 18 116/76 99 09/15/17 04:14 99 Room Air 09/15/17 04:14 96.8 65 20 124/82 99 Room Air 09/15/17 03:55 96.8 09/15/17 03:19 96.8 09/15/17 00:24 100 Room Air 09/14/17 23:45 96.8 67 20 132/91 100 Room Air 09/14/17 19:40 96.5 65 20 133/91 99 Room Air 09/14/17 15:48 96.8 63 20 148/88 100 Room Air 09/14/17 12:00 97.3 56 17 135/85 97 Intake and Output 09/14/17 09/15/17 19:00 07:00 Intake Total 1020 ml 750 ml Output Total 1400 ml Balance -380 ml 750 ml Intake Oral 120 ml IV Total 900 ml 750 ml Output Urine Total 1400 ml # Voids 3 1 # Bowel Movements 1 Laboratory Tests 09/14/17 10:15: White Blood Count 4.6L, Red Blood Count 3.90L, Hemoglobin 11.4L, Hematocrit 34.8L, Mean Corpuscular Volume 89, Mean Corpuscular Hemoglobin 29.3, Mean Corpuscular Hemoglobin Concent 32.9, Red Cell Distribution Width 19.2H, Platelet Count 226, Mean Platelet Volume 5.4L, Neutrophils (%) (Auto) 65.2, Lymphocytes (%) (Auto) 21.5, Monocytes (%) (Auto) 11.3H, Eosinophils (%) (Auto) 0.9, Basophils (%) (Auto) 1.2 09/14/17 12:41: Prothrombin Time 10.4, Prothromb Time International Ratio 1.0, Activated Partial Thromboplast Time 29 Height (Feet): 5 Height (Inches): 5.00 Weight (Pounds): 79 Neville Youngblood Sep 15, 2017 09:57
--- NOTE | 2017-09-15 11:37 | Anethesia Preoperative Eval ---
Anesthesia Pre-op PMH/ROS General Date of Evaluation: Sep 15, 2017 Time of Evaluation: 11:55 Anesthesiologist: avril ASA Score: ASA 3 Mallampati Score Class I : Soft palate, uvula, fauces, pillars visible Class II: Soft palate, uvula, fauces visible Class III: Soft palate, base of uvula visible Class IV: Only hard plate visible Mallampati Classification: Class II Surgeon: christina Diagnosis: pancreatic mass Surgical Procedure: eus/ercp Anesthesia History: none Social History: smoking - nonsmoker Family History: no anesthesia problems Allergies: Coded Allergies: No Known Allergies (Unverified , 09/10/17) Medications: see eMAR Past Medical History Gastrointestinal/Genitourinary: Reports: GERD, other - pancreatic cancer Endocrine: Reports: DM Hematology/Immune: Reports: anemia Anesthesia Pre-op Phys. Exam Physician Exam Last Vital Signs Date Time Temp Pulse Resp B/P (MAP) Pulse Ox O2 Delivery O2 Flow Rate FiO2 09/15/17 08:00 96.6 65 18 116/76 99 09/15/17 04:14 Room Air 09/11/17 16:00 98.0 Constitutional: NAD Neurologic: CN 2-12 intact Cardiovascular: RRR Respiratory: CTA Gastrointestinal: S/NT/ND Airway Exam Mallampati Score: Class II MO: limited Neck: supple TMD: 2fb ROM: limited Teeth: missing Anesthesia Pre-op A/P Labs Coagulation Test 09/14/17 12:41 Prothrombin Time 10.4 SEC (9.30-11.50) Prothromb Time International Ratio 1.0 (0.9-1.1) Activated Partial Thromboplast Time 29 SEC (23-33) Risk Assessment & Plan Assessment: asa3 Plan: mac Status Change Before Surgery: No Pre-Antibiotics Drug: na MISAEL GROVE Sep 15, 2017 11:37
--- NOTE | 2017-09-15 11:51 | Pre-Procedure Note/Attestation ---
Pre-Procedure Note/Attestation Complete Prior to Procedure Planned Procedure: not applicable Procedure Narrative: eus Indications for Procedure Pre-Operative Diagnosis: pancreatic mass Attestation I attest that I discussed the nature of the procedure; its benefits; risks and complications; and alternatives (and the risks and benefits of such alternatives ), prior to the procedure, with the patient (or the patient's legal agricultural sales representative). I attest that, if there was a reasonable possibility of needing a blood transfusion, the patient (or the patient's legal agricultural sales representative) was given the [facility] standardized written summary, pursuant to the Simon Rosi Blood Safety Act ([place] Health and Safety Code # 1645, as amended). I attest that I re-evaluated the patient just prior to the surgery and that there has been no change in the patient's H&P, except as documented below: ADELINA SPARKS Sep 15, 2017 11:51
[2017-09-15 12:00] LABS: BASOPHILS % (AUTO) 1.1 % (0.0-2.0); EOSINOPHILS % (AUTO) 0.8 % (0.0-3.0); HEMATOCRIT 33.3 % (42.0-52.0); LYMPHOCYTES % (AUTO) 23.8 % (20.0-45.0); MEAN CORPUSCULAR VOLUME 89 FL (80-99); MONOCYTES % (AUTO) 10.2 % (1.0-10.0); NEUTROPHILS % (AUTO) 64.1 % (45.0-75.0); PLATELET COUNT 247 K/UL (150-450); RED BLOOD COUNT 3.73 M/UL (4.70-6.10); RED CELL DISTRIBUTION WIDTH 19.1 % (11.6-14.8); WHITE BLOOD COUNT 4.7 K/UL (4.8-10.8)
[2017-09-15] MEDS ORDERED: Lidocaine 1% MPF 10mg/ml 5ml ONE (12:00)
[2017-09-15] MEDS ORDERED: Propofol 200mg/20ml IV ONE (12:00)
[2017-09-15] MEDS ORDERED: NS 500ML IV ONE (12:05)
[2017-09-15] MEDS ORDERED: Midazolam 2mg/2ml Inj IVP PRN (12:15)
[2017-09-15] MEDS ORDERED: DiphenhydrAMINE 50mg/ml Inj IVP PRN (12:15)
[2017-09-15] MEDS ORDERED: Atropine Inj 1mg/10ml Syr IV PRN (12:15)
[2017-09-15] MEDS ORDERED: fentaNYL 100 mcg/2 mL IV PRN (12:15)
[2017-09-15 12:27] LABS: ALANINE AMINOTRANSFERASE 14 U/L (12-78); ALBUMIN 2.3 G/DL (3.4-5.0); ALBUMIN/GLOBULIN RATIO 0.6 (1.0-2.7); ALKALINE PHOSPHATASE 85 U/L (46-116); ANION GAP 3 mmol/L (5-15); ASPARTATE AMINO TRANSFERASE 19 U/L (15-37); BILIRUBIN,TOTAL 0.3 MG/DL (0.2-1.0); BLOOD UREA NITROGEN 2 mg/dL (7-18); CALCIUM 8.1 MG/DL (8.5-10.1); CARBON DIOXIDE 27 MMOL/L (21-32); CHLORIDE 100 MMOL/L (98-107); CREATININE 0.6 MG/DL (0.55-1.30); POTASSIUM 4.5 MMOL/L (3.5-5.1); SODIUM 130 MMOL/L (136-145)
--- NOTE | 2017-09-15 13:19 | GI Progress Note ---
Assessment/Plan Problems: (1) Pancreatic cancer ICD Codes: C25.9 - Malignant neoplasm of pancreas, unspecified SNOMED: 876254543 (2) Jaundice ICD Codes: R17 - Unspecified jaundice SNOMED: 40469194 (3) Anemia due to blood loss, acute ICD Codes: D62 - Acute posthemorrhagic anemia SNOMED: 597185434 (4) Coffee ground emesis ICD Codes: K92.0 - Hematemesis SNOMED: 559345921, 07416177 (5) Anemia ICD Codes: D64.9 - Anemia, unspecified SNOMED: 420114712 Qualifiers: Qualified Codes: D64.9 - Anemia, unspecified Status: unchanged Status Narrative Discussed with Dr. Caicedo. Assessment/Plan CT AP reviewed >> Heterogeneous mass in the area of the pancreatic head suspicious for malignancy. CBD stent noted with pneumobilia present indicating patency of the stent. plan CT guided pancreatic mass biopsy >> unable to be performed due to location of mass cdiff positive EUS + FNA performed today, consent was able to be obtain >> see Dr. Caicedo's procedure note. fu paracentesis r/o SBP monitor H&H, prn transfusions bowel regime ppi fu labs, CA19-9 dc planning Subjective Gastrointestinal/Abdominal: Reports: no symptoms Objective Last 24 Hour Vital Signs Date Time Temp Pulse Resp B/P (MAP) Pulse Ox O2 Delivery O2 Flow Rate FiO2 09/15/17 12:00 96.8 68 19 116/88 99 09/15/17 08:00 96.6 65 18 116/76 99 09/15/17 04:14 99 Room Air 09/15/17 04:14 96.8 65 20 124/82 99 Room Air 09/15/17 03:55 96.8 09/15/17 03:19 96.8 09/15/17 00:24 100 Room Air 09/14/17 23:45 96.8 67 20 132/91 100 Room Air 09/14/17 19:40 96.5 65 20 133/91 99 Room Air 09/14/17 15:48 96.8 63 20 148/88 100 Room Air Intake and Output 09/14/17 09/15/17 19:00 07:00 Intake Total 1020 ml 750 ml Output Total 1400 ml Balance -380 ml 750 ml Intake Oral 120 ml IV Total 900 ml 750 ml Output Urine Total 1400 ml # Voids 3 1 # Bowel Movements 1 Laboratory Tests Test 09/15/17 11:32 White Blood Count 4.7 K/UL (4.8-10.8) L Red Blood Count 3.73 M/UL (4.70-6.10) L Hemoglobin 11.0 G/DL (14.2-18.0) L Hematocrit 33.3 % (42.0-52.0) L Mean Corpuscular Volume 89 FL (80-99) Mean Corpuscular Hemoglobin 29.5 PG (27.0-31.0) Mean Corpuscular Hemoglobin Concent 33.0 G/DL (32.0-36.0) Red Cell Distribution Width 19.1 % (11.6-14.8) H Platelet Count 247 K/UL (150-450) Mean Platelet Volume 5.3 FL (6.5-10.1) L Neutrophils (%) (Auto) 64.1 % (45.0-75.0) Lymphocytes (%) (Auto) 23.8 % (20.0-45.0) Monocytes (%) (Auto) 10.2 % (1.0-10.0) H Eosinophils (%) (Auto) 0.8 % (0.0-3.0) Basophils (%) (Auto) 1.1 % (0.0-2.0) Prothrombin Time 10.3 SEC (9.30-11.50) Prothromb Time International Ratio 1.0 (0.9-1.1) Activated Partial Thromboplast Time 29 SEC (23-33) Sodium Level 130 MMOL/L (136-145) L Potassium Level 4.5 MMOL/L (3.5-5.1) Chloride Level 100 MMOL/L (98-107) Carbon Dioxide Level 27 MMOL/L (21-32) Anion Gap 3 mmol/L (5-15) L Blood Urea Nitrogen 2 mg/dL (7-18) L Creatinine 0.6 MG/DL (0.55-1.30) Estimat Glomerular Filtration Rate > 60 mL/min (>60) Glucose Level 156 MG/DL (74-106) H Calcium Level 8.1 MG/DL (8.5-10.1) L Total Bilirubin 0.3 MG/DL (0.2-1.0) Aspartate Amino Transf (AST/SGOT) 19 U/L (15-37) Alanine Aminotransferase (ALT/SGPT) 14 U/L (12-78) Alkaline Phosphatase 85 U/L (46-116) Total Protein 6.2 G/DL (6.4-8.2) L Albumin 2.3 G/DL (3.4-5.0) L Globulin 3.9 g/dL Albumin/Globulin Ratio 0.6 (1.0-2.7) L Height (Feet): 5 Height (Inches): 5.00 Weight (Pounds): 79 General Appearance: no apparent distress, alert, thin Cardiovascular: normal rate Respiratory/Chest: normal breath sounds, no respiratory distress Abdominal Exam: normal bowel sounds, non tender, soft Extremities: non-tender Clemencia Topete N.P. Sep 15, 2017 13:19
--- NOTE | 2017-09-15 14:04 | Immediate Post-Op Evaluation ---
Immediate Post-Op Evalulation Immediate Post-Op Evalulation Procedure: egd Date of Evaluation: Sep 15, 2017 Time of Evaluation: 14:00 IV Fluids: 125ml 0.9ns Blood Products: none Estimated Blood Loss: negligible Blood Pressure Systolic: 134 Blood Pressure Diastolic: 85 Pulse Rate: 61 Respiratory Rate: 18 O2 Sat by Pulse Oximetry: 100 Temperature (Fahrenheit): 98.1 Pain Score (1-10): 0 Nausea: No Vomiting: No Complications none Patient Status: awake, reacts, patent Hydration Status: adequate Drug: MISAEL Kaye Sep 15, 2017 14:04
--- NOTE | 2017-09-15 14:08 | 48 Hour Post Anesthesia Eval ---
Post Anesthesia Evaluation Procedure: egd Date of Evaluation: Sep 15, 2017 Time of Evaluation: 14:07 Blood Pressure Systolic: 154 0: 85 Pulse Rate: 61 Respiratory Rate: 18 Temperature (Fahrenheit): 98.1 O2 Sat by Pulse Oximetry: 100 Airway: patent Nausea: No Vomiting: No Pain Intensity: 0 Hydration Status: adequate Cardiopulmonary Status: stable Mental Status/LOC: patient returned to baseline Post-Anesthesia Complications: none Follow-up care needed: N/A MISAEL GROVE Sep 15, 2017 14:08
--- NOTE | 2017-09-15 14:47 | Infectious Diseases Prog Note ---
Assessment/Plan Problems: (1) C. difficile colitis Assessment & Plan: improving , most likely the source of his sepsis, continue oral vancomycin for 14 days, avoid PPI, and Imodium (2) Leukocytosis Assessment & Plan: improved with no evidence of sepsis, blood culture remains negative , on ceftriaxon empiric coverage for GI bleeding for 5 days (3) Coffee ground emesis Assessment & Plan: rule out UGI BLD , continue to monitor H/H, transfuse blood as needed , GI consulted (4) Diabetes Assessment & Plan: recommend tight glycemic control to keep blood glucose between 100-140 (5) Pancreatic cancer Assessment & Plan: for EUS and pancreatic head biopsy by GI today Subjective Constitutional: Reports: no symptoms HEENT: Reports: no symptoms Respiratory: Reports: no symptoms Breasts: Reports: no symptoms Cardiovascular: Reports: no symptoms Gastrointestinal/Abdominal: Reports: nausea, bloating, other - abdominal pain Genitourinary: Reports: no symptoms Neurologic: Reports: no symptoms Psychiatric: Reports: no symptoms Skin: Reports: no symptoms Endocrine: Reports: no symptoms Hematologic: Reports: no symptoms Musculoskeletal: Reports: no symptoms Allergies: Coded Allergies: No Known Allergies (Unverified , 09/10/17) Objective Vital Signs Last 24 Hour Vital Signs Date Time Temp Pulse Resp B/P (MAP) Pulse Ox O2 Delivery O2 Flow Rate FiO2 09/15/17 14:15 98.5 58 16 153/89 100 Nasal Cannula 3.0 09/15/17 14:08 208.6 61 18 100 09/15/17 14:07 208.6 61 18 100 09/15/17 14:02 98.3 09/15/17 14:02 57 19 143/85 100 Nasal Cannula 3.0 09/15/17 13:58 58 16 151/88 100 Nasal Cannula 3.0 09/15/17 13:53 57 17 135/84 100 Nasal Cannula 3.0 09/15/17 13:48 98.3 60 19 134/85 100 Nasal Cannula 3.0 09/15/17 12:00 96.8 68 19 116/88 99 09/15/17 08:00 96.6 65 18 116/76 99 09/15/17 04:14 99 Room Air 09/15/17 04:14 96.8 65 20 124/82 99 Room Air 09/15/17 03:55 96.8 09/15/17 03:19 96.8 09/15/17 00:24 100 Room Air 09/14/17 23:45 96.8 67 20 132/91 100 Room Air 09/14/17 19:40 96.5 65 20 133/91 99 Room Air 09/14/17 15:48 96.8 63 20 148/88 100 Room Air Height (Feet): 5 Height (Inches): 5.00 Weight (Pounds): 79 General Appearance: WD/WN, no acute distress HEENT: normocephalic, atraumatic, anicteric, mucous membranes moist, PERRL Respiratory/Chest: chest wall non-tender, lungs clear, normal breath sounds, no respiratory distress, no accessory muscle use Cardiovascular: normal peripheral pulses, normal rate, regular rhythm, no gallop/murmur, no JVD Abdomen: no organomegaly, non distended, no mass, no scars, hypoactive bowel sounds, guarding, tender Extremities: no cyanosis, no clubbing Skin: no rash, no lesions, no ulcers Neurologic/Psychiatric: alert, responsive Lymphatic: no neck adenopathy, no groin adenopathy Laboratory Tests Test 09/15/17 11:32 White Blood Count 4.7 K/UL (4.8-10.8) L Red Blood Count 3.73 M/UL (4.70-6.10) L Hemoglobin 11.0 G/DL (14.2-18.0) L Hematocrit 33.3 % (42.0-52.0) L Mean Corpuscular Volume 89 FL (80-99) Mean Corpuscular Hemoglobin 29.5 PG (27.0-31.0) Mean Corpuscular Hemoglobin Concent 33.0 G/DL (32.0-36.0) Red Cell Distribution Width 19.1 % (11.6-14.8) H Platelet Count 247 K/UL (150-450) Mean Platelet Volume 5.3 FL (6.5-10.1) L Neutrophils (%) (Auto) 64.1 % (45.0-75.0) Lymphocytes (%) (Auto) 23.8 % (20.0-45.0) Monocytes (%) (Auto) 10.2 % (1.0-10.0) H Eosinophils (%) (Auto) 0.8 % (0.0-3.0) Basophils (%) (Auto) 1.1 % (0.0-2.0) Prothrombin Time 10.3 SEC (9.30-11.50) Prothromb Time International Ratio 1.0 (0.9-1.1) Activated Partial Thromboplast Time 29 SEC (23-33) Sodium Level 130 MMOL/L (136-145) L Potassium Level 4.5 MMOL/L (3.5-5.1) Chloride Level 100 MMOL/L (98-107) Carbon Dioxide Level 27 MMOL/L (21-32) Anion Gap 3 mmol/L (5-15) L Blood Urea Nitrogen 2 mg/dL (7-18) L Creatinine 0.6 MG/DL (0.55-1.30) Estimat Glomerular Filtration Rate > 60 mL/min (>60) Glucose Level 156 MG/DL (74-106) H Calcium Level 8.1 MG/DL (8.5-10.1) L Total Bilirubin 0.3 MG/DL (0.2-1.0) Aspartate Amino Transf (AST/SGOT) 19 U/L (15-37) Alanine Aminotransferase (ALT/SGPT) 14 U/L (12-78) Alkaline Phosphatase 85 U/L (46-116) Total Protein 6.2 G/DL (6.4-8.2) L Albumin 2.3 G/DL (3.4-5.0) L Globulin 3.9 g/dL Albumin/Globulin Ratio 0.6 (1.0-2.7) L Current Medications Medications (Trade) Dose Ordered Sig/Nishant Route PRN Reason Start Time Stop Time Status Last Admin Dose Admin Acetaminophen (Tylenol) 650 mg Q4H PRN ORAL Mild Pain (Pain Scale 1-3) 09/12/17 17:26 10/10/17 17:25 Acetaminophen/ Hydrocodone Bitart ([place] 10/325) 1 tab Q4H PRN ORAL Moderate Pain (Pain Scale 4-6) 09/12/17 17:27 18 17:26 09/13/17 05:50 Al Hydroxide/Mg Hydroxide (Mylanta) 15 ml Q1H PRN ORAL gi upset 09/15/17 12:15 09/15/17 19:00 Atropine Sulfate (Atropine) 0.5 mg Q5M PRN IV bpm less than 45 09/15/17 12:15 09/15/17 19:00 Ceftriaxone Sodium 2 gm/ Sodium Chloride 55 ml @ 110 mls/hr Q24H IVPB 09/13/17 15:00 09/18/17 14:59 09/14/17 14:40 Dextrose (Dextrose 50%) STAT PRN IV Hypoglycemia 09/12/17 17:27 10/10/17 17:26 Dextrose/ Electrolytes 1,000 ml @ 75 mls/hr [id number] IV 09/12/17 17:30 10/10/17 23:38 09/15/17 03:02 Diphenhydramine HCl (Benadryl) 25 mg Q15M PRN IVP Itching 09/15/17 12:15 09/15/17 19:00 Fentanyl Citrate (Sublimaze 100 mcg/2 mL) 25 mcg Q10M PRN IV Moderate Pain (Pain Scale 4-6) 09/15/17 12:15 09/15/17 19:00 09/15/17 14:02 Gabapentin (Neurontin) 600 mg EVERY 12 HOURS ORAL 09/12/17 21:00 10/11/17 08:59 09/15/17 08:33 Hydralazine HCl (Apresoline) 5 mg Q30M PRN IV SBP>160 OR___/DBP>90 OR___ 09/15/17 12:15 09/15/17 19:00 Insulin Aspart (NovoLOG) BEFORE MEALS AND HS SUBQ 09/12/17 21:00 10/11/17 06:29 09/14/17 20:24 Midazolam HCl (Versed 2mg/2ml vial) 1 mg Q15M PRN IVP For Anxiety 09/15/17 12:15 09/15/17 19:00 Morphine Sulfate (Morphine Sulfate) 2 mg Q4H PRN IVP Severe Breakthru Pain (>7) 09/12/17 17:28 09/17/17 17:27 09/15/17 08:34 Ondansetron HCl (Zofran) 4 mg Q1H PRN IVP Nausea & Vomiting 09/15/17 12:15 09/15/17 19:00 Ondansetron HCl (Zofran) 4 mg Q6H PRN IVP Nausea & Vomiting 09/12/17 17:28 10/10/17 17:27 Pantoprazole (Protonix) 40 mg EVERY 12 HOURS IVP 09/12/17 21:00 10/11/17 20:59 09/15/17 08:33 Sodium Chloride 1,000 ml @ 10 mls/hr Q24H IVLG 09/15/17 12:11 09/15/17 19:00 Vancomycin HCl (Vancomycin) 125 mg Q6HR ORAL 09/12/17 18:00 09/19/17 23:59 09/14/17 22:59 Jv Eli M.D. Sep 15, 2017 14:47
[2017-09-15] MEDS: cefTRIAXone 2 GM in NS 55 ML IVPB SCH (15:32)
--- NOTE | 2017-09-15 22:47 | Nephrology Progress Note ---
Assessment/Plan Problem List: (1) Coffee ground emesis (2) Jaundice (3) Pancreatic cancer (4) Leukocytosis (5) C. difficile colitis (6) Anemia due to blood loss, acute Plan f/u GI recs. hopeful d/c plan soon when cleared by GI. cont abx per ID. Subjective Subjective Pending GI procedure. Objective Objective Last 24 Hour Vital Signs Date Time Temp Pulse Resp B/P (MAP) Pulse Ox O2 Delivery O2 Flow Rate FiO2 09/15/17 20:00 97.9 81 19 117/86 99 Room Air 97.9 09/15/17 16:00 96.8 62 18 143/98 99 96.8 09/15/17 14:15 98.5 58 16 153/89 100 Nasal Cannula 3.0 09/15/17 14:08 208.6 61 18 100 09/15/17 14:07 208.6 61 18 100 09/15/17 14:02 98.3 09/15/17 14:02 57 19 143/85 100 Nasal Cannula 3.0 09/15/17 13:58 58 16 151/88 100 Nasal Cannula 3.0 09/15/17 13:53 57 17 135/84 100 Nasal Cannula 3.0 09/15/17 13:48 98.3 60 19 134/85 100 Nasal Cannula 3.0 09/15/17 12:00 96.8 68 19 116/88 99 09/15/17 08:00 96.6 65 18 116/76 99 09/15/17 04:14 99 Room Air 09/15/17 04:14 96.8 65 20 124/82 99 Room Air 09/15/17 03:55 96.8 09/15/17 03:19 96.8 09/15/17 00:24 100 Room Air 09/14/17 23:45 96.8 67 20 132/91 100 Room Air Intake and Output 09/14/17 09/15/17 19:00 07:00 Intake Total 1020 ml 750 ml Output Total 1400 ml Balance -380 ml 750 ml Intake Oral 120 ml IV Total 900 ml 750 ml Output Urine Total 1400 ml # Voids 3 1 # Bowel Movements 1 Laboratory Tests 09/15/17 11:32: White Blood Count 4.7L, Red Blood Count 3.73L, Hemoglobin 11.0L, Hematocrit 33.3L, Mean Corpuscular Volume 89, Mean Corpuscular Hemoglobin 29.5, Mean Corpuscular Hemoglobin Concent 33.0, Red Cell Distribution Width 19.1H, Platelet Count 247, Mean Platelet Volume 5.3L, Neutrophils (%) (Auto) 64.1, Lymphocytes (%) (Auto) 23.8, Monocytes (%) (Auto) 10.2H, Eosinophils (%) (Auto) 0.8, Basophils (%) (Auto) 1.1, Prothrombin Time 10.3, Prothromb Time International Ratio 1.0, Activated Partial Thromboplast Time 29, Sodium Level 130L, Potassium Level 4.5, Chloride Level 100, Carbon Dioxide Level 27, Anion Gap 3L, Blood Urea Nitrogen 2L, Creatinine 0.6, Estimat Glomerular Filtration Rate > 60, Glucose Level 156H, Calcium Level 8.1L, Total Bilirubin 0.3, Aspartate Amino Transf (AST/SGOT) 19, Alanine Aminotransferase (ALT/SGPT) 14, Alkaline Phosphatase 85, Total Protein 6.2L, Albumin 2.3L, Globulin 3.9, Albumin /Globulin Ratio 0.6L Height (Feet): 5 Height (Inches): 5.00 Weight (Pounds): 79 General Appearance: no apparent distress Cardiovascular: normal rate, regular rhythm Respiratory/Chest: lungs clear Abdomen: soft, distended Extremities: trace edema Neurologic: alert FREEMAN LIVNIGSTON Sep 15, 2017 22:47
[2017-09-15] MEDS: HYDROcodone/Acetamin 10/325 tab ORAL PRN (22:54)
[2017-09-16] VITALS: BP 133/85
[2017-09-16 04:00] VITALS: BP 120/81
[2017-09-16] MEDS: Vancomycin oral 125mg/2.5ml ORAL SCH ×2 (05:49→12:09)
[2017-09-16] MEDS: NovoLOG Insulin Flexpen SUBQ SCH ×3 (05:50→16:30)
[2017-09-16 08:00] VITALS: BP 115/78
[2017-09-16] MEDS: Pantoprazole Inj IVP SCH (08:42)
[2017-09-16] MEDS: HYDROcodone/Acetamin 10/325 tab ORAL PRN ×2 (08:42→16:43)
--- NOTE | 2017-09-16 09:15 | General Progress Note ---
Assessment/Plan Assessment/Plan #. Anemia due to underlying gastrointestinal bleed. --> Anemia workup reviewed. --> Iron 47, TIBC 120, Ferritin 134, Vit B12 678, Folate 8 --> Occult blood ++, consider GI consult. Appreciate recs. --> Pathology revealing benign gastric mucosa, lamina propria moderate to marked chronic and focal acute inflammation #. Anemia of chronic disease. --> Anemia workup has been reviewed. --> Ferritin is within normal limits. TIBC is low. Folate is low. --> Transfuse if hgb<7 or symptomatic. #. Diabetes mellitus. --> Tight blood glucose control recommended between 80 and 140. #. Gastroesophageal reflux disease. --> Continue proton pump inhibitor. #. Pancreatic cancer. --> Tumor markers reviewed. #. Leukocytosis, rule out sepsis, infectious etiology. --> Resolved. --> Blood cultures have been ordered, results were negative. --> Negative for helicobacter Subjective Date patient seen: Sep 15, 2017 Constitutional: Denies: no symptoms, chills, diaphoresis, fever, malaise, weakness, other HEENT: Denies: no symptoms, eye pain, blurred vision, tearing, double vision, ear pain, ear discharge, nose pain, nose congestion, throat pain, throat swelling, mouth pain, mouth swelling, other Cardiovascular: Denies: no symptoms, chest pain, edema, irregular heart rate, lightheadedness, palpitations, syncope, other Respiratory: Denies: no symptoms, cough, orthopnea, shortness of breath, SOB with excertion, SOB at rest, sputum, stridor, wheezing, other Gastrointestinal/Abdominal: Denies: no symptoms, abdomen distended, abdominal pain, black stools, tarry stools, blood in stool, constipated, diarrhea, difficulty swallowing, nausea, poor appetite, poor fluid intake, rectal bleeding , vomiting, other Genitourinary: Denies: no symptoms, burning, discharge, frequency, flank pain, hematuria, incontinence, pain, urgency, other Hematologic/Lymphatic: Reports: anemia Allergies: Coded Allergies: No Known Allergies (Unverified , 09/10/17) Subjective Pt refusing IV access. On oral pain control. Objective Last 24 Hour Vital Signs Date Time Temp Pulse Resp B/P (MAP) Pulse Ox O2 Delivery O2 Flow Rate FiO2 09/16/17 08:00 97.9 84 18 115/78 96 97.9 09/16/17 04:00 98.6 68 18 120/81 97 Room Air 98.6 09/16/17 00:00 97.7 61 17 133/85 98 Room Air 97.7 09/15/17 23:53 97.9 09/15/17 22:54 97.9 09/15/17 20:00 97.9 81 19 117/86 99 Room Air 97.9 09/15/17 16:00 96.8 62 18 143/98 99 96.8 09/15/17 14:15 98.5 58 16 153/89 100 Nasal Cannula 3.0 09/15/17 14:08 208.6 61 18 100 09/15/17 14:07 208.6 61 18 100 09/15/17 14:02 98.3 09/15/17 14:02 57 19 143/85 100 Nasal Cannula 3.0 09/15/17 13:58 58 16 151/88 100 Nasal Cannula 3.0 09/15/17 13:53 57 17 135/84 100 Nasal Cannula 3.0 09/15/17 13:48 98.3 60 19 134/85 100 Nasal Cannula 3.0 09/15/17 12:00 96.8 68 19 116/88 99 Intake and Output 09/15/17 09/16/17 19:00 07:00 Intake Total 690 ml Output Total 100 ml Balance 690 ml -100 ml Intake Oral 240 ml IV Total 450 ml Output Urine Total 100 ml Laboratory Tests 09/15/17 11:32: White Blood Count 4.7L, Red Blood Count 3.73L, Hemoglobin 11.0L, Hematocrit 33.3L, Mean Corpuscular Volume 89, Mean Corpuscular Hemoglobin 29.5, Mean Corpuscular Hemoglobin Concent 33.0, Red Cell Distribution Width 19.1H, Platelet Count 247, Mean Platelet Volume 5.3L, Neutrophils (%) (Auto) 64.1, Lymphocytes (%) (Auto) 23.8, Monocytes (%) (Auto) 10.2H, Eosinophils (%) (Auto) 0.8, Basophils (%) (Auto) 1.1, Prothrombin Time 10.3, Prothromb Time International Ratio 1.0, Activated Partial Thromboplast Time 29, Sodium Level 130L, Potassium Level 4.5, Chloride Level 100, Carbon Dioxide Level 27, Anion Gap 3L, Blood Urea Nitrogen 2L, Creatinine 0.6, Estimat Glomerular Filtration Rate > 60, Glucose Level 156H, Calcium Level 8.1L, Total Bilirubin 0.3, Aspartate Amino Transf (AST/SGOT) 19, Alanine Aminotransferase (ALT/SGPT) 14, Alkaline Phosphatase 85, Total Protein 6.2L, Albumin 2.3L, Globulin 3.9, Albumin /Globulin Ratio 0.6L Height (Feet): 5 Height (Inches): 5.00 Weight (Pounds): 79 General Appearance: agitated Cardiovascular: normal rate Respiratory/Chest: decreased breath sounds Abdomen: non tender, soft Edema: trace edema Neville Youngblood Sep 16, 2017 09:15
[2017-09-16 09:31] LABS: BASOPHILS % (AUTO) 0.7 % (0.0-2.0); EOSINOPHILS % (AUTO) 0.9 % (0.0-3.0); HEMATOCRIT 35.8 % (42.0-52.0); HEMOGLOBIN 11.9 G/DL (14.2-18.0); LYMPHOCYTES % (AUTO) 18.9 % (20.0-45.0); MEAN CORPUSCULAR VOLUME 89 FL (80-99); NEUTROPHILS % (AUTO) 69.5 % (45.0-75.0); PLATELET COUNT 258 K/UL (150-450); RED CELL DISTRIBUTION WIDTH 19.4 % (11.6-14.8); WHITE BLOOD COUNT 4.8 K/UL (4.8-10.8)
[2017-09-16 10:00] LABS: ALANINE AMINOTRANSFERASE 18 U/L (12-78); ALBUMIN 2.4 G/DL (3.4-5.0); ALBUMIN/GLOBULIN RATIO 0.5 (1.0-2.7); ALKALINE PHOSPHATASE 96 U/L (46-116); ANION GAP 5 mmol/L (5-15); ASPARTATE AMINO TRANSFERASE 15 U/L (15-37); BILIRUBIN,TOTAL 0.5 MG/DL (0.2-1.0); BLOOD UREA NITROGEN 6 mg/dL (7-18); CALCIUM 8.5 MG/DL (8.5-10.1); CARBON DIOXIDE 28 MMOL/L (21-32); CHLORIDE 97 MMOL/L (98-107); CREATININE 0.8 MG/DL (0.55-1.30); POTASSIUM 4.4 MMOL/L (3.5-5.1); SODIUM 130 MMOL/L (136-145)
--- NOTE | 2017-09-16 10:15 | Procedure Note ---
DATE OF PROCEDURE: 09/15/2017 SURGEON: Jose Caicedo M.D. PROCEDURE: Endoscopic ultrasound. ANESTHESIA: Per Dr. Buenrostro. INSTRUMENT: Olympus adult flexible EUS scope. INDICATION: Pancreatic mass. REASON FOR PROCEDURE: The procedure, risks, benefits, and possible consequences, including hemorrhage, aspiration, perforation and infection, and alternative treatments, were explained to the patient/legal guardian by Dr. Jose Caicedo and the patient/legal guardian understood and accepted these risks. DESCRIPTION OF PROCEDURE: After informed consent was obtained and the patient was adequately sedated, the EUS radial scope was introduced into the stomach. The patient has history of gastric bypass, so there was only a small gastric pouch left. We were able to look at the pancreatic body and tail, which showed evidence of mildly dilated pancreatic duct to about 3 mm. We could not get to the head of the pancreas given the patient has gastric bypass. Our plan was to do a biopsy of the pancreatic head, but we could not reach it with the scope to be able to biopsy given the gastric bypass. At this time, the procedure was terminated. SUMMARY OF FINDINGS: Unable to reach the pancreatic mass given the patient has history of gastric bypass. RECOMMENDATIONS: The patient apparently had a diagnosis before. According to the chart, the patient had an ERCP and stent placement before for this lesion. I will recommend given this is difficult to biopsy, Radiology failed to be able to reach it with the CT-guided biopsy and we could not reach it with the EUS. We need to get the records from the prior hospital admissions from different places to see what procedure he actually had and when was the diagnosis, because in the ER note also he already had a diagnosis of pancreatic malignancy. So, we do not want to try to do multiple procedures, if we can biopsy the pancreas and the patient already has the diagnosis. I want to thank Dr. Delonte Quintero for this kind referral. Jose Caicedo M.D. DR: ROBERT JOB#: [id number] CC: Delonte Quintero M.D.; Fax#: [phone]
--- NOTE | 2017-09-16 10:37 | Endoscopy Procedure Note ---
Endoscopy Procedure Note General Indication for Procedure: panc mass Procedures Performed: other - EUS Operative Findings/Diagnosis: dilated pancreatic duct Specimen: none Pt Tolerated Procedure Well: Yes Estimated Blood Loss: none Anesthesia Anesthesiologist: henry Anesthesia: MAC Inserted Devices Implant(s) used?: No GI Core Measures 50 yrs or older w/o bx or poly: Not Applicable 10yrs. F/U not recommended: Not Applicable ADELINA SPARKS Sep 16, 2017 10:37
[2017-09-16 12:00] VITALS: BP 118/83
--- NOTE | 2017-09-16 12:06 | GI Progress Note ---
Assessment/Plan Problems: (1) Pancreatic cancer ICD Codes: C25.9 - Malignant neoplasm of pancreas, unspecified SNOMED: 089975652 (2) Jaundice ICD Codes: R17 - Unspecified jaundice SNOMED: 51279295 (3) Anemia due to blood loss, acute ICD Codes: D62 - Acute posthemorrhagic anemia SNOMED: 382714165 (4) Coffee ground emesis ICD Codes: K92.0 - Hematemesis SNOMED: 273332346, 04820005 (5) Anemia ICD Codes: D64.9 - Anemia, unspecified SNOMED: 320042335 Qualifiers: Qualified Codes: D64.9 - Anemia, unspecified (6) Severe malnutrition ICD Codes: E43 - Unspecified severe protein-calorie malnutrition SNOMED: 05498378 Status: unchanged Status Narrative Discussed with Dr. Caicedo. Assessment/Plan CT AP reviewed >> Heterogeneous mass in the area of the pancreatic head suspicious for malignancy. CBD stent noted with pneumobilia present indicating patency of the stent. cdiff positive s/p EUS without FNA, unable to reach mass obtain records from prior hospitals cont plan of care, okay for DC per GI standpoint monitor H&H, prn transfusions bowel regime OT evaluation ppi fu labs, CA19-9 Subjective Gastrointestinal/Abdominal: Reports: no symptoms Objective Last 24 Hour Vital Signs Date Time Temp Pulse Resp B/P (MAP) Pulse Ox O2 Delivery O2 Flow Rate FiO2 09/16/17 09:41 97.9 09/16/17 08:00 97.9 84 18 115/78 96 97.9 09/16/17 04:00 98.6 68 18 120/81 97 Room Air 98.6 09/16/17 00:00 97.7 61 17 133/85 98 Room Air 97.7 09/15/17 22:54 97.9 09/15/17 20:00 97.9 81 19 117/86 99 Room Air 97.9 09/15/17 16:00 96.8 62 18 143/98 99 96.8 09/15/17 14:15 98.5 58 16 153/89 100 Nasal Cannula 3.0 09/15/17 14:08 208.6 61 18 100 09/15/17 14:07 208.6 61 18 100 09/15/17 14:02 98.3 2/20/18 14:02 57 19 143/85 100 Nasal Cannula 3.0 09/15/17 13:58 58 16 151/88 100 Nasal Cannula 3.0 09/15/17 13:53 57 17 135/84 100 Nasal Cannula 3.0 09/15/17 13:48 98.3 60 19 134/85 100 Nasal Cannula 3.0 Intake and Output 09/15/17 09/16/17 19:00 07:00 Intake Total 690 ml Output Total 100 ml Balance 690 ml -100 ml Intake Oral 240 ml IV Total 450 ml Output Urine Total 100 ml Laboratory Tests Test 09/16/17 07:45 White Blood Count 4.8 K/UL (4.8-10.8) Red Blood Count 4.00 M/UL (4.70-6.10) L Hemoglobin 11.9 G/DL (14.2-18.0) L Hematocrit 35.8 % (42.0-52.0) L Mean Corpuscular Volume 89 FL (80-99) Mean Corpuscular Hemoglobin 29.8 PG (27.0-31.0) Mean Corpuscular Hemoglobin Concent 33.3 G/DL (32.0-36.0) Red Cell Distribution Width 19.4 % (11.6-14.8) H Platelet Count 258 K/UL (150-450) Mean Platelet Volume 5.3 FL (6.5-10.1) L Neutrophils (%) (Auto) 69.5 % (45.0-75.0) Lymphocytes (%) (Auto) 18.9 % (20.0-45.0) L Monocytes (%) (Auto) 10.0 % (1.0-10.0) Eosinophils (%) (Auto) 0.9 % (0.0-3.0) Basophils (%) (Auto) 0.7 % (0.0-2.0) Sodium Level 130 MMOL/L (136-145) L Potassium Level 4.4 MMOL/L (3.5-5.1) Chloride Level 97 MMOL/L (98-107) L Carbon Dioxide Level 28 MMOL/L (21-32) Anion Gap 5 mmol/L (5-15) Blood Urea Nitrogen 6 mg/dL (7-18) L Creatinine 0.8 MG/DL (0.55-1.30) Estimat Glomerular Filtration Rate > 60 mL/min (>60) Glucose Level 107 MG/DL (74-106) H Calcium Level 8.5 MG/DL (8.5-10.1) Total Bilirubin 0.5 MG/DL (0.2-1.0) Aspartate Amino Transf (AST/SGOT) 15 U/L (15-37) Alanine Aminotransferase (ALT/SGPT) 18 U/L (12-78) Alkaline Phosphatase 96 U/L (46-116) Total Protein 6.8 G/DL (6.4-8.2) Albumin 2.4 G/DL (3.4-5.0) L Globulin 4.4 g/dL Albumin/Globulin Ratio 0.5 (1.0-2.7) L Height (Feet): 5 Height (Inches): 5.00 Weight (Pounds): 79 General Appearance: WD/WN, no apparent distress, alert, thin Cardiovascular: normal rate Respiratory/Chest: normal breath sounds, no respiratory distress Abdominal Exam: normal bowel sounds, non tender, soft Extremities: non-tender Clemencia Topete N.P. Sep 16, 2017 12:06
[2017-09-16] MEDS: Morphine Sulfate 4mg/ml Inj IVP PRN (12:45)
--- NOTE | 2017-09-16 12:47 | Diagnostic Imaging Report ---
Indication: Abdominal pain. Assess for ascites. Technique: Limited grayscale imaging of the abdomen. Comparison: CT abdomen 09/12/2017 Findings: Limited, focused grayscale imaging through the right lower quadrant and midline of the abdomen demonstrates no significant pocket of ascites for paracentesis. Impression: No significant ascites/suitable pocket for paracentesis identified on images obtained.
[2017-09-16] MEDS ORDERED: VANCOMYCIN HCL125 MG PO (13:22)
--- NOTE | 2017-09-16 14:38 | Infectious Diseases Prog Note ---
Assessment/Plan Problems: (1) C. difficile colitis Assessment & Plan: improving , most likely the source of his sepsis, continue oral vancomycin for 14 days, avoid PPI, and Imodium (2) Leukocytosis Assessment & Plan: improved with no evidence of sepsis, blood culture remains negative , on ceftriaxon empiric coverage for GI bleeding for 5 days (3) Coffee ground emesis Assessment & Plan: rule out UGI BLD , continue to monitor H/H, transfuse blood as needed , GI consulted (4) Diabetes Assessment & Plan: recommend tight glycemic control to keep blood glucose between 100-140 (5) Pancreatic cancer Assessment & Plan: had EUS but no pancreatic head biopsy was done by GI , was hard to reach Subjective Constitutional: Reports: no symptoms HEENT: Reports: no symptoms Respiratory: Reports: no symptoms Breasts: Reports: no symptoms Cardiovascular: Reports: no symptoms Gastrointestinal/Abdominal: Reports: bloating, other - abdominal pain Genitourinary: Reports: no symptoms Neurologic: Reports: no symptoms Psychiatric: Reports: no symptoms Skin: Reports: no symptoms Endocrine: Reports: no symptoms Hematologic: Reports: no symptoms Musculoskeletal: Reports: no symptoms Allergies: Coded Allergies: No Known Allergies (Unverified , 09/10/17) Objective Vital Signs Last 24 Hour Vital Signs Date Time Temp Pulse Resp B/P (MAP) Pulse Ox O2 Delivery O2 Flow Rate FiO2 09/16/17 13:15 97.5 09/16/17 12:00 97.5 91 19 118/83 98 97.5 09/16/17 09:41 97.9 09/16/17 08:00 97.9 84 18 115/78 96 97.9 09/16/17 04:00 98.6 68 18 120/81 97 Room Air 98.6 09/16/17 00:00 97.7 61 17 133/85 98 Room Air 97.7 09/15/17 22:54 97.9 09/15/17 20:00 97.9 81 19 117/86 99 Room Air 97.9 09/15/17 16:00 96.8 62 18 143/98 99 96.8 Height (Feet): 5 Height (Inches): 5.00 Weight (Pounds): 79 General Appearance: WD/WN, no acute distress HEENT: normocephalic, atraumatic, anicteric, mucous membranes moist, PERRL Respiratory/Chest: chest wall non-tender, lungs clear, normal breath sounds, no respiratory distress, no accessory muscle use Cardiovascular: normal peripheral pulses, normal rate, regular rhythm, no gallop/murmur, no JVD Abdomen: normal bowel sounds, soft, non tender, no organomegaly, non distended , no mass, no scars Extremities: no cyanosis, no clubbing Skin: no rash, no lesions, no ulcers Neurologic/Psychiatric: alert, oriented x 3 Laboratory Tests Test 09/16/17 07:45 White Blood Count 4.8 K/UL (4.8-10.8) Red Blood Count 4.00 M/UL (4.70-6.10) L Hemoglobin 11.9 G/DL (14.2-18.0) L Hematocrit 35.8 % (42.0-52.0) L Mean Corpuscular Volume 89 FL (80-99) Mean Corpuscular Hemoglobin 29.8 PG (27.0-31.0) Mean Corpuscular Hemoglobin Concent 33.3 G/DL (32.0-36.0) Red Cell Distribution Width 19.4 % (11.6-14.8) H Platelet Count 258 K/UL (150-450) Mean Platelet Volume 5.3 FL (6.5-10.1) L Neutrophils (%) (Auto) 69.5 % (45.0-75.0) Lymphocytes (%) (Auto) 18.9 % (20.0-45.0) L Monocytes (%) (Auto) 10.0 % (1.0-10.0) Eosinophils (%) (Auto) 0.9 % (0.0-3.0) Basophils (%) (Auto) 0.7 % (0.0-2.0) Sodium Level 130 MMOL/L (136-145) L Potassium Level 4.4 MMOL/L (3.5-5.1) Chloride Level 97 MMOL/L (98-107) L Carbon Dioxide Level 28 MMOL/L (21-32) Anion Gap 5 mmol/L (5-15) Blood Urea Nitrogen 6 mg/dL (7-18) L Creatinine 0.8 MG/DL (0.55-1.30) Estimat Glomerular Filtration Rate > 60 mL/min (>60) Glucose Level 107 MG/DL (74-106) H Calcium Level 8.5 MG/DL (8.5-10.1) Total Bilirubin 0.5 MG/DL (0.2-1.0) Aspartate Amino Transf (AST/SGOT) 15 U/L (15-37) Alanine Aminotransferase (ALT/SGPT) 18 U/L (12-78) Alkaline Phosphatase 96 U/L (46-116) Total Protein 6.8 G/DL (6.4-8.2) Albumin 2.4 G/DL (3.4-5.0) L Globulin 4.4 g/dL Albumin/Globulin Ratio 0.5 (1.0-2.7) L Current Medications Medications (Trade) Dose Ordered Sig/Nishant Route PRN Reason Start Time Stop Time Status Last Admin Dose Admin Acetaminophen (Tylenol) 650 mg Q4H PRN ORAL Mild Pain (Pain Scale 1-3) 09/12/17 17:26 10/10/17 17:25 Acetaminophen/ Hydrocodone Bitart (Orange 10/325) 1 tab Q4H PRN ORAL Moderate Pain (Pain Scale 4-6) 09/12/17 17:27 09/17/17 17:26 09/16/17 08:42 Dextrose (Dextrose 50%) STAT PRN IV Hypoglycemia 09/12/17 17:27 10/10/17 17:26 Gabapentin (Neurontin) 600 mg EVERY 12 HOURS ORAL 09/12/17 21:00 10/11/17 08:59 09/16/17 08:43 Insulin Aspart (NovoLOG) BEFORE MEALS AND HS SUBQ 09/12/17 21:00 10/11/17 06:29 09/16/17 12:09 Morphine Sulfate (Morphine Sulfate) 2 mg Q4H PRN IVP Severe Breakthru Pain (>7) 09/12/17 17:28 09/17/17 17:27 09/16/17 12:45 Ondansetron HCl (Zofran) 4 mg Q6H PRN IVP Nausea & Vomiting 09/12/17 17:28 10/10/17 17:27 Pantoprazole (Protonix) 40 mg EVERY 12 HOURS IVP 09/12/17 21:00 10/11/17 20:59 09/16/17 08:42 Vancomycin HCl (Vancomycin) 125 mg Q6HR ORAL 09/12/17 18:00 09/19/17 23:59 2/21/18 12:09 Jv Eli M.D. Sep 16, 2017 14:38
--- NOTE | 2017-09-16 15:08 | Cardiology Report ---
APPROVED REPORT EKG Measurement Heart [id number] Sinus bradycardia Otherwise normal ECG
[2017-09-16 16:00] VITALS: BP 120/70
[2017-09-16] MEDS ORDERED: Tubing IV Secondary IV ONE (16:59)
--- NOTE | 2017-09-17 09:21 | General Progress Note ---
Assessment/Plan Assessment/Plan #. Anemia due to underlying gastrointestinal bleed. --> Hemoglobin has been stable, does not need blood transfusion. --> Anemia workup reviewed. --> Iron 47, TIBC 120, Ferritin 134, Vit B12 678, Folate 8 --> Occult blood ++, consider GI consult. Appreciate recs. --> Pathology revealing benign gastric mucosa, lamina propria moderate to marked chronic and focal acute inflammation #. Anemia of chronic disease. Mild at this time. --> Anemia workup has been reviewed. --> Ferritin is within normal limits. TIBC is low. Folate is low. --> Transfuse if hgb<7 or symptomatic. #. Diabetes mellitus. --> Tight blood glucose control recommended between 80 and 140. #. Gastroesophageal reflux disease. --> Continue proton pump inhibitor. #. Pancreatic cancer. --> Tumor markers reviewed. #. Leukocytosis, rule out sepsis, infectious etiology. --> Resolved. --> Blood cultures have been ordered, results were negative. --> Negative for helicobacter Subjective Date patient seen: Sep 16, 2017 Constitutional: Denies: no symptoms, chills, diaphoresis, fever, malaise, weakness, other HEENT: Denies: no symptoms, eye pain, blurred vision, tearing, double vision, ear pain, ear discharge, nose pain, nose congestion, throat pain, throat swelling, mouth pain, mouth swelling, other Cardiovascular: Denies: no symptoms, chest pain, edema, irregular heart rate, lightheadedness, palpitations, syncope, other Respiratory: Denies: no symptoms, cough, orthopnea, shortness of breath, SOB with excertion, SOB at rest, sputum, stridor, wheezing, other Gastrointestinal/Abdominal: Denies: no symptoms, abdomen distended, abdominal pain, black stools, tarry stools, blood in stool, constipated, diarrhea, difficulty swallowing, nausea, poor appetite, poor fluid intake, rectal bleeding , vomiting, other Genitourinary: Denies: no symptoms, burning, discharge, frequency, flank pain, hematuria, incontinence, pain, urgency, other Hematologic/Lymphatic: Reports: anemia Allergies: Coded Allergies: No Known Allergies (Unverified , 09/10/17) Subjective NAD. No fever or chills. Pending DC. Objective Last 24 Hour Vital Signs Date Time Temp Pulse Resp B/P (MAP) Pulse Ox O2 Delivery O2 Flow Rate FiO2 09/16/17 16:00 97.7 81 20 120/70 97 97.7 09/16/17 13:15 97.5 09/16/17 12:00 97.5 91 19 118/83 98 97.5 09/16/17 09:41 97.9 Height (Feet): 5 Height (Inches): 5.00 Weight (Pounds): 79 General Appearance: no apparent distress EENT: normal ENT inspection Neck: supple Cardiovascular: normal rate Respiratory/Chest: lungs clear Abdomen: non tender, soft Neville Youngblood Sep 17, 2017 09:21
--- NOTE | 2017-09-18 12:14 | Discharge Summary ---
Discharge Summary Hospital Course Date of Admission Sep 10, 2017 at 13:30 Date of Discharge Sep 16, 2017 at 17:00 Admitting Diagnosis UPPER GI BLEED HPI You Merida is a 62 year old male who was admitted on Sep 10, 2017 at 13:30 for Gastrointestinal Bleed Hospital Course [id number] Discharge Discharge Disposition Patient was discharged to SNF/Subacute Facility(03) Discharge Diagnoses: Maude Rome NP Sep 18, 2017 12:14
--- NOTE | 2017-09-18 23:45 | Discharge Summary 2 SIG ---
DATE OF ADMISSION: 09/10/2017 DATE OF DISCHARGE: 09/16/2017 CONSULTANTS: 1. Jv Eli M.D. 2. Jose Caicedo M.D. 3. Neville Winters. BRIEF HOSPITAL COURSE: The patient is a 62-year-old, male with past medical history of GERD, hypertension, pancreatic CA, diabetes mellitus who presented to ED with complaints of coffee-ground emesis at SNF. The patient is a poor historian and unclear if he had a similar episodes before. On evaluation at ED workup showed anemia, hemoglobin was 6.6 and hematocrit was 20. Current INR was 1.2. He was admitted for acute anemia and hematemesis. He was given blood transfusion. He was followed by Dr. Caicedo. On 09/11/2017 he underwent esophagogastroduodenoscopy. Findings showed the patient has gastrojejunostomy for unknown reason. He had a bile reflux and gastritis. The patient developed leukocytosis. He was started empirically on ceftriaxone, pending blood results. He was positive for C. difficile and was given vancomycin oral. Blood culture did not isolate any growth. He underwent abdominal and pelvic CT that showed a heterogenous mass in the pancreatic head suspicious for malignancy. Abdominal ultrasound showed no significant ascites or pockets suitable for paracenteses. He had episodes of low potassium down to 3.2 and was given potassium supplements. He was planned to undergo colonoscopy however due to findings on CT scan plan for a CT-guided pancreatic mass biopsy was made, however, was not unable to be performed due to the location of mass. He then underwent an EUS with FNA on 09/16/2017 however during the procedure unable to reach the pancreatic mass given the patient had prior gastric bypass. Procedure was aborted. 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 He received total of three units packed RBC blood transfusion. Blood culture did not isolate any growth. Anemia workup done showed normal ferritin with low folate and low iron. He was eventually cleared for discharge. The patient was sent back to [facility]. FINAL DIAGNOSES: 1. Coffee-ground emesis/possible gastrointestinal bleed. 2. Jaundice. 3. Pancreatic cancer. 4. Clostridium difficile colitis. 5. Acute anemia requiring blood transfusion. 6. Anemia due to chronic disease. 7. Leukocytosis with no evidence of sepsis. DISPOSITION: The patient was discharged to [facility]. DISCHARGE MEDICATIONS: Refer to medication list. Delonte Quintero M.D. I have been assigned to dictate discharge summary on this account and I was not involved in the patient's management. Maude Rome N.P. DR: Ashutosh JOB#: [id number] CC: PATRICIA
--- NOTE | 2017-10-26 22:08 | Emergency Room Report ---
History of Present Illness General Chief Complaint: Gastrointestinal Bleed Source: Medical Record Present Illness HPI Patient presents by paramedics for reports of vomiting Patient himself is a poor historian Appears chronically ill pale and cachectic The patient had been reported to be dry heaving for several hours Unknown regarding diarrhea patient cannot provide information regarding pain Patient appears to have been here at this hospital in August for possible GI bleed Has reported history of pancreatic cancer History of present illness remains limited secondary to the patient's ability to provide history Allergies: Coded Allergies: No Known Allergies (Unverified , 09/10/17) Patient History Past Medical History: see triage record Pertinent Family History: none Reviewed Nursing Documentation: PMH: Agreed; PSxH: Agreed Nursing Documentation-PMH Past Medical History: No History, Except For Hx Cardiac Problems: No Hx Diabetes: Yes Hx Cancer: Yes Hx Gastrointestinal Problems: Yes - GERD Hx Peripheral Neuropathy: Yes Review of Systems All Other Systems: limited - Other than the ones mentioned in the history of present illness all others are reviewed however they do stay limited due to the patient's mental status Physical Exam Sp02 EP Interpretation: reviewed, normal General Appearance: moderate distress - Appears nauseated and dry heaving Head: normocephalic, atraumatic Eyes: bilateral eye PERRL ENT: dry mucus membranes - And pale Neck: supple Respiratory: crackles - Both upper and lower Lobes Medical Decision Making Diagnostic Impression: Primary Impression: Coffee ground emesis Additional Impression: Anemia Disposition: ADMITTED INPATIENT Condition: Critical Referrals: ISABELLA AYALA (PCP) Chelsi Soliman DO Oct 26, 2017 22:08
== END 2017-09-16 17:00 | DRG 253 ==
LOC: EDBD 12:21 → EDBEDREQ 12:38 → EMR 13:05 → 2E 13:30 → EDBEDREQ 13:38 → 2E 20:13 → 4W 09-12 17:16
PROC: 30233N1 Transfusion of Nonautologous Red Blood Cells into Peripheral Vein, Percutaneous Approach (ICD-10-PCS; principal; 2017-09-10)
PROC: 0DD68ZX Extraction of Stomach, Via Natural or Artificial Opening Endoscopic, Diagnostic (ICD-10-PCS; 2017-09-11)
PROC: BD42ZZZ Ultrasonography of Stomach (ICD-10-PCS; 2017-09-15)
PROC: 0DJ08ZZ Inspection of Upper Intestinal Tract, Via Natural or Artificial Opening Endoscopic (ICD-10-PCS; 2017-09-15 13:27)
DX: K92.2 Gastrointestinal hemorrhage, unspecified (principal); C25.9 Malignant neoplasm of pancreas, unspecified; E43 Unspecified severe protein-calorie malnutrition; A04.72 Enterocolitis due to Clostridium difficile, not specified as recurrent; R17 Unspecified jaundice; K21.9 Gastro-esophageal reflux disease without esophagitis; K29.70 Gastritis, unspecified, without bleeding; D62 Acute posthemorrhagic anemia; E11.9 Type 2 diabetes mellitus without complications; Z68.1 Body mass index [BMI] 19.9 or less, adult; Z79.4 Long term (current) use of insulin
CPT/HCPCS: 36415; 74177; 76705; 80048; 80053; 82270; 82378; 82607; 82728; 82746; 82962; 83540; 83550; 83615; 83690; 85007; 85025; 85044; 85384; 85610; 85730; 86850; 86900; 86901; 86920; 87040; 87081; 87324; 93005; 94003; 94150; 99285; J1815; J2405; J8499

== ENCOUNTER 2017-10-26 21:48 | Inpatient (IN) | payer MEDICAID ==
[~2017-10-26] VITALS: Ht 167.6 cm; Wt 43.1 kg
[~2017-10-26 21:48] MED LIST: ACETAMINOPHEN325 M1 ORAL; HUMULIN R100 UNIT/1 SUBQ; NEURONTIN600 MG ORAL; NORCO 5-325 TA1 EACH ORAL; PRO-STAT LIQUID30 ML ORAL; VANCOMYCIN HCL125 MG PO; ZOFRAN4 M3 ORAL
[2017-10-27 00:04] LABS: ALANINE AMINOTRANSFERASE 28 U/L (12-78); ALBUMIN 1.9 G/DL (3.4-5.0); ALBUMIN/GLOBULIN RATIO 0.5 (1.0-2.7); ALKALINE PHOSPHATASE 104 U/L (46-116); ASPARTATE AMINO TRANSFERASE 52 U/L (15-37); BILIRUBIN,TOTAL 0.7 MG/DL (0.2-1.0); BLOOD UREA NITROGEN 57 mg/dL (7-18); CALCIUM 6.9 MG/DL (8.5-10.1); CARBON DIOXIDE 27 MMOL/L (21-32); CKMB 3.9 NG/ML (0.0-3.6); CREATINE KINASE 157 U/L (26-308)
[2017-10-27 00:31] LABS: CHLORIDE 102 MMOL/L (98-107); POTASSIUM 4.7 MMOL/L (3.5-5.1); SODIUM 137 MMOL/L (136-145)
[2017-10-27 00:48] LABS: HEMATOCRIT 37.8 % (42.0-52.0); HEMOGLOBIN 12.5 G/DL (14.2-18.0); MEAN CORPUSCULAR VOLUME 92 FL (80-99); PLATELET COUNT 91 K/UL (150-450); RED CELL DISTRIBUTION WIDTH 18.6 % (11.6-14.8); WHITE BLOOD COUNT 4.6 K/UL (4.8-10.8)
[2017-10-27 00:50] LABS: BASOPHILS % (AUTO) 0.5 % (0.0-2.0); EOSINOPHILS % (AUTO) 0.1 % (0.0-3.0); MONOCYTES % (AUTO) 2.7 % (1.0-10.0); NEUTROPHILS % (AUTO) 89.7 % (45.0-75.0)
--- NOTE | 2017-10-27 01:43 | Emergency Room Report ---
History of Present Illness General Chief Complaint: Abnormal Labs Source: Medical Record Present Illness HPI Patient was sent in from nursing facility with complaints of altered mental status patient had been found to be hypoglycemic Did become more responsive and alert after receiving dextrose patient himself is a poor historian Has medical records indicating pancreatic cancer Patient had been dry heaving in the ambulance bay as well Otherwise unable to provide appropriate history Unknown regarding fever Patient has had recent hospitalization Allergies: Coded Allergies: No Known Allergies (Unverified , 09/10/17) Patient History Limited by: medical condition Past Medical History: see triage record Pertinent Family History: unable to obtain Reviewed Nursing Documentation: PMH: Agreed; PSxH: Agreed Nursing Documentation-PMH Hx Cardiac Problems: No Hx Gastrointestinal Problems: Yes - GERD Hx Peripheral Neuropathy: Yes Review of Systems All Other Systems: limited - Other than the ones mentioned in the history of present illness all others are reviewed however they do stay limited due to the patient's mental status Physical Exam Vital Signs Date Time Temp Pulse Resp B/P (MAP) Pulse Ox O2 Delivery O2 Flow Rate FiO2 10/26/17 21:40 80 16 139/78 98 Room Air Sp02 EP Interpretation: reviewed, normal General Appearance: mild distress - Appears pale and nauseated Head: normocephalic, atraumatic Eyes: bilateral eye PERRL, bilateral eye EOMI ENT: hearing grossly normal, TMs + canals normal, uvula midline, dry mucus membranes Neck: full range of motion, supple, no meningismus, no bony tend Respiratory: no respiratory distress, no retraction, no accessory muscle use, crackles Cardiovascular #1: normal peripheral pulses, regular rate, rhythm, no edema, no gallop, no JVD, no murmur Gastrointestinal: soft, no organomegaly, non-distended, no guarding, no hernia , no pulsatile mass, no rebound Genitourinary: no CVA tenderness Musculoskeletal: other - Patient moves both upper extremities equally Neurologic: responsive, sensory intact Psychiatric: mood/affect normal Skin: warm/dry, palpation normal, pallor Lymphatic: no adenopathy Medical Decision Making Diagnostic Impression: Primary Impression: Elevated troponin Additional Impressions: Hypoglycemia Pancreatic cancer ER Course Patient is a fairly complex patient with multiple differential to consideration including but not limited to cardiac cardiopulmonary and vascular emergencies Patient also shows signs of acidosis with elevated lactic acid Chest x-ray does not show any obvious acute pathology ABG was appropriate with appropriate pH Prostration antibiotics IV fluids initiated Patient requiring admission for higher level of care Labs Test 10/26/17 21:57 10/26/17 23:36 10/27/17 00:24 10/27/17 02:40 Sodium Level 137 MMOL/L (136-145) Potassium Level 4.7 MMOL/L (3.5-5.1) Chloride Level 102 MMOL/L (98-107) Carbon Dioxide Level 27 MMOL/L (21-32) Blood Urea Nitrogen 57 mg/dL (7-18) Creatinine 1.0 MG/DL (0.55-1.30) Estimat Glomerular Filtration Rate > 60 mL/min (>60) Glucose Level 129 MG/DL (74-106) Lactic Acid Level 4.10 mmol/L (0.66-2.22) Calcium Level 6.9 MG/DL (8.5-10.1) Total Bilirubin 0.7 MG/DL (0.2-1.0) Aspartate Amino Transf (AST/SGOT) 52 U/L (15-37) Alanine Aminotransferase (ALT/SGPT) 28 U/L (12-78) Alkaline Phosphatase 104 U/L (46-116) Total Creatine Kinase 157 U/L (26-308) Creatine Kinase MB 3.9 NG/ML (0.0-3.6) Creatine Kinase MB Relative Index 2.4 Troponin I 1.258 ng/mL (0.000-0.056) Total Protein 5.8 G/DL (6.4-8.2) Albumin 1.9 G/DL (3.4-5.0) Globulin 3.9 g/dL Albumin/Globulin Ratio 0.5 (1.0-2.7) Lipase 19 U/L (73-393) Arterial Blood pH 7.435 (7.350-7.450) Arterial Blood Partial Pressure CO2 36.7 mmHg (35.0-45.0) Arterial Blood Partial Pressure O2 101.5 mmHg (75.0-100.0) Arterial Blood HCO3 24.1 mmol/L (22.0-26.0) Arterial Blood Oxygen Saturation 96.0 % (92.0-98.0) Arterial Blood Base Excess 0.2 Carlo Test Positive White Blood Count 4.6 K/UL (4.8-10.8) Red Blood Count 4.10 M/UL (4.70-6.10) Hemoglobin 12.5 G/DL (14.2-18.0) Hematocrit 37.8 % (42.0-52.0) Mean Corpuscular Volume 92 FL (80-99) Mean Corpuscular Hemoglobin 30.4 PG (27.0-31.0) Mean Corpuscular Hemoglobin Concent 33.1 G/DL (32.0-36.0) Red Cell Distribution Width 18.6 % (11.6-14.8) Platelet Count 91 K/UL (150-450) Mean Platelet Volume 8.8 FL (6.5-10.1) Neutrophils (%) (Auto) 89.7 % (45.0-75.0) Lymphocytes (%) (Auto) 7.0 % (20.0-45.0) Monocytes (%) (Auto) 2.7 % (1.0-10.0) Eosinophils (%) (Auto) 0.1 % (0.0-3.0) Basophils (%) (Auto) 0.5 % (0.0-2.0) Rhythm Strip Diag. Results EP Interpretation: yes Rate: 102 Rhythm: no PVC's, no ectopy, other - sinus tach Chest X-Ray Diagnostic Results Chest X-Ray Diagnostic Results : Chest X-Ray Ordered: Yes # of Views/Limited/Complete: 1 View Indication: Shortness of Breath EP Interpretation: Yes Interpretation: no consolidation, no effusion, no pneumothorax, no acute cardiopulmonary disease Impression: No acute disease Electronically Signed by: Chelsi Soliman DO CT/MRI/US Diagnostic Results CT/MRI/US Diagnostic Results : Impression CT abdomen pelvis:Distended loops of small bowel, no obvious transition point, multiple nonspecific findings no obvious free air.edema and ascites are seen Last Vital Signs Date Time Temp Pulse Resp B/P (MAP) Pulse Ox O2 Delivery O2 Flow Rate FiO2 18 21:40 80 16 139/78 98 Room Air Status: improved Disposition: ADMITTED INPATIENT Condition: Critical Referrals: ISABELLA AYALA (PCP) Chelsi Soliman DO Oct 27, 2017 01:42
[2017-10-27] MEDS ORDERED: D5 1/2NS 1,000 ML IV SCH (01:45)
[2017-10-27] MEDS ORDERED: Piperacillin/Tazobactam 3.375 GM in NS 110 ML IVPB ONE (03:00)
[2017-10-27] MEDS ORDERED: Zosyn 3.375gm inj ONE (03:07)
[2017-10-27 04:28] VITALS: BP 97/48
[2017-10-27 05:16] VITALS: BP 98/72
[2017-10-27 08:00] VITALS: BP 96/68
[2017-10-27] MEDS ORDERED: Norco 5mg/325mg tab ORAL PRN (09:00)
[2017-10-27] MEDS ORDERED: Heparin 5000 units/ml inj SUBQ SCH (09:00)
--- NOTE | 2017-10-27 09:26 | Diagnostic Imaging Report ---
Indication: Chest pain Technique: One view of the chest Comparison: none Findings: There is a right chest port catheter. There is some atelectasis at both lung bases. The lungs and pleural spaces are otherwise clear. The heart size is upper limits normal. The aorta is tortuous and ectatic. Considerable gas is seen in stomach and bowel Impression: Bibasilar atelectasis. Considerable bowel gas
[2017-10-27] MEDS ORDERED: D5 1/2NS w/KCl 20mEq 1,000 ML IV SCH (10:01)
--- NOTE | 2017-10-27 11:12 | Diagnostic Imaging Report ---
Indication: Abdominal pain Technique: Spiral acquisitions obtained through the abdomen and pelvis. No oral contrast utilized, per emergency room physician request No IV contrast utilized, per referring physician request.. Multiplanar reconstructions were generated. Total dose length product 453 mGycm. CTDIvol(s) 9.23 mGy. Dose reduction achieved using automated exposure control Comparison: 09/12/2017 Findings: Exam is extremely limited, due to lack of oral and IV contrast, as well as anasarca and asthenic body habitus limiting inherent soft tissue contrast Patient is status post gastrojejunal anastomosis, with a surgical staple line present. This is better appreciated on the previous contrast study. There is also an anastomosis in the region of the colleen hepatis. The stomach is massively distended with fluid and gas. There are dilated small bowel loops. Distal small bowel loops are nondilated. The cecum is distended with gas, by the colon is collapsed distal to this. The appendix is not definitely demonstrated. There is colonic diverticulosis. There is massive ascites. No free intraperitoneal gas demonstrated. Lack of IV contrast limits assessment of solid organs. The liver is atrophic, more so than previously. As previously, gas is seen within the bile ducts. There is an endobiliary stent in place. There is a low-attenuation lesion within the right hepatic lobe which measures 14 mm in diameter, not evident previously. Previously demonstrated pancreatic head mass is less well-demonstrated than previously although definitely present. The spleen, adrenals, kidneys are unremarkable. No gross retroperitoneal or mesenteric mass or adenopathy. No pelvic mass or adenopathy. The lung bases demonstrate extensive consolidation. There is a small amount of pleural fluid bilaterally. The bones are unremarkable. The subcutaneous and mesenteric fat is diffusely massively edematous. Impression: Extremely limited exam, as described above Massively distended stomach and small bowel, without evidence of distal nondilated small bowel loops, transition point not clearly identified. While possibly functional in nature, findings are concerning for small bowel obstruction Distended cecum, suspect functional in nature. Appendix not definitely identified Anasarca, with diffuse edema of the subcutaneous and abdominal fat, massive ascites, and small bilateral pleural effusions. This is is much more extensive than on the previous study Evidence of prior GI surgery, also previously described Pancreatic head mass, previously reported, likely malignant Endobiliary stent again demonstrated. Pneumobilia, presumed secondary to the above New low-attenuation lesion within the right hepatic lobe, likely a metastatic deposit Colonic diverticulosis Hepatic atrophy, progressive since previous study Bilateral basilar pulmonary parenchymal consolidation, extensive This agrees with the preliminary interpretation provided overnight by [facility] teleradiology service. The CT scanner at [facility] is accredited by the [employer] and the scans are performed using protocols designed to limit radiation exposure to as low as reasonably achievable to attain images of sufficient resolution adequate for diagnostic evaluation.
[2017-10-27] MEDS ORDERED: Vancomycin oral 125mg/2.5ml ORAL SCH (12:00)
--- NOTE | 2017-10-27 17:41 | Cardiology Report ---
APPROVED REPORT EKG Measurement Heart [id number] Normal sinus rhythm Low voltage QRS Cannot rule out Anterior infarct, age undetermined Abnormal ECG
--- NOTE | 2017-10-27 17:59 | History & Physical ---
History and Physical History & Physicial patient Maude Rome NP Oct 27, 2017 17:59
--- NOTE | 2017-10-27 17:59 | Discharge Summary ---
Discharge Summary Discharge Summary Discharge Summary DATE OF ADMISSION: 10/26/2017 DATE OF DISCHARGE: 10/26/2017 BRIEF SUMMARY: Patient is an unfortunate 62-year-old male who presented to ED transferred from nursing home facility with complaints of altered mental status, patient was found to be hypoglycemic. He did become more responsive and alert after receiving dextrose. He has medical history of pancreatic cancer. He has unknown other medical history. On evaluation at ED, there was no leukocytosis noted although lactic acid was elevated to 4. Glucose level was 129. Troponin was elevated to 1.258. He had a chest x-ray done that showed no acute disease. Abdominal CT showed massively distended stomach and small bowel, without evidence of distal nondilated small bowel loops, transition point not clearly identified. Cecum was distended, appendix was not identified. There was diffuse anasarca and had evidence of prior GI surgery. Pancreatic head mass likely malignant. He was started on Zosyn. He was admitted to telemetry however, on the monitor was noted to have bradycardia and CODE BLUE was called and was transferred to ICU. Resuscitative efforts failed, he eventually . FINAL DIAGNOSES: 1. Cardiopulmonary arrest 2. Elevated troponin 3. Altered mental status/acute metabolic encephalopathy secondary to hypoglycemia 4. Pancreatic cancer DISPOSITION: Patient . I have been assigned to dictate discharge summary on this account, and I was not involved in the patient's management. Maude Rome NP Oct 27, 2017 17:59
--- NOTE | 2017-10-28 08:11 | Emergency Room Report ---
History of Present Illness General Chief Complaint: Abnormal Labs Source: Medical Record Present Illness Allergies: Coded Allergies: No Known Allergies (Unverified , 09/10/17) Nursing Documentation-PMH Hx Cardiac Problems: No Hx Gastrointestinal Problems: Yes - GERD Hx Peripheral Neuropathy: Yes Physical Exam Vital Signs Date Time Temp Pulse Resp B/P (MAP) Pulse Ox O2 Delivery O2 Flow Rate FiO2 10/26/17 21:40 80 16 139/78 98 Room Air 10/27/17 04:28 98.0 98.0 Procedures Critical Care Time Critical Care Time i. I feel this is a highly complex case requiring extensive working including EKG/Rhythm strip, Xray/CT/US, Blood/urine lab work, repeat exams while in ED, and administration of strong opiates/narcotics for pain control, admission to hospital or close patient follow up. Total time: 30 min bedside evaluation and treatment excludes procedures (EKG). Reason for critical care: Cardiac arrest Possible complications: hypotension, hypertension, [place], shock, arrhythmias, metabolic acidosis, end organ damage, respiratory failure. Interventions: Intubation. ACLS. Defibrillation. Course: Patient became bradycardic after aspiration on telemetry floor. Lost pulses. Unresponsive. Chest compressions started. I intubated patient. Chest compressions continued. Given epinephrine. Given calcium and bicarbonate. After multiple rounds resuscitation patient regained pulses temporarily. During transport to ICU patient again lost pulses. Multiple rounds of ACLS continued. Patient had 2 episodes of ventricular fibrillation and was subsequently shocked. Patient remained in asystole after fibrillation. Prognosis poor. Resuscitative efforts terminated. Patient expires Consultations: nursing staff, EMS, family Performed by: Dr Medina Tolerated well condition = j. because of unstable vital signs this patient had a condition that could potentially threaten life or limb. I feel this is a critical patient who required my full attention while patient was considered critical. Total Critical Care Time excluding procedures was greater than 35 minutes CPR/Code Blue CPR/Code Blue Narrative see code blue sheet for full narrative Intubation Intubation : Consent: Emergent Intubation Method: orotracheal Tube Size (cm): 7.5 Breath Sounds after Intubation: equal Intubation Complications: no complications Post Intubation Xray: Yes Attempts: One Patient Tolerated: Well Complications: None Medical Decision Making Diagnostic Impression: Primary Impression: Elevated troponin Additional Impressions: Hypoglycemia Pancreatic cancer ER Course I was called to the telemetry floor for this CODE BLUE. Patient became bradycardic and unresponsive after having aspiration event. Vomitus noted at bedside. Patient lost pulses. Initial rhythm PEA. Chest compressions started. Upon arrival I intubated patient. Given epinephrine multiple times. Given calcium and bicarbonate. After multiple rounds patient did regain pulses temporarily. In route to ICU patient lost pulses. In asystole. ACLS continued. Patient did have 2 episodes of ventriular fibrillation. I shocked the patient twice. After the second defibrillation patient returned to asystole. At this point, prognosis is poor. Resuscitative efforts terminated. Patient expires Last Vital Signs Date Time Temp Pulse Resp B/P (MAP) Pulse Ox O2 Delivery O2 Flow Rate FiO2 10/27/17 08:00 97.7 82 21 96/68 96 Room Air 97.7 Status: worsened Disposition: Condition: Referrals: ISABELLA AYALA (PCP) El Medina MD Oct 28, 2017 08:11
== END 2017-10-27 14:09 | disposition expired | DRG 424 ==
LOC: EDBD 21:48 → EMR 22:00 → 2E 23:26 → EDBEDREQ 10-27 01:02 → EDBEDREQTM 10-27 01:38 → EDBEDREQSVC 10-27 01:38 → EDBEDREQDT 10-27 01:38 → EDBEDREQ 10-27 01:40 → ICU 10-27 10:03
PROC: 5A12012 Performance of Cardiac Output, Single, Manual (ICD-10-PCS; principal; 2017-10-27)
PROC: 0BH17EZ Insertion of Endotracheal Airway into Trachea, Via Natural or Artificial Opening (ICD-10-PCS; 2017-10-27)
DX: E16.2 Hypoglycemia, unspecified (principal); I46.9 Cardiac arrest, cause unspecified; G93.41 Metabolic encephalopathy; C25.9 Malignant neoplasm of pancreas, unspecified; G62.9 Polyneuropathy, unspecified; K21.9 Gastro-esophageal reflux disease without esophagitis; R06.02 Shortness of breath; R74.8 Abnormal levels of other serum enzymes
CPT/HCPCS: 36415; 36600; 71045; 74176; 80053; 82550; 82553; 82803; 82962; 83605; 83690; 84484; 85025; 87040; 87181; 92950; 93005; 99291; J2405